=== PATIENT | male | born 1960 | race Caucasian/White ===

== ENCOUNTER 2018-12-12 10:30 | Inpatient (IN) | payer MEDICARE, OTHER ==
[2018-12-12 20:02] VITALS: BP 153/90
[2018-12-12] MEDS ORDERED: Magnesium Hydroxide (MOM) 30 mL UDC PO PRN (20:05)
[2018-12-12] MEDS ORDERED: Maalox 30 mL Cup PO PRN (20:05)
[2018-12-13] MEDS: Multivitamin Tab PO SCH (08:34)
--- NOTE | 2018-12-13 16:55 | History & Physical ---
ADMIT DATE: 12/13/2018 REASON FOR CONSULTATION: Medical management and clearance. CHIEF COMPLAINT: Admitted to inpatient unit. HISTORY OF PRESENT ILLNESS: This is a 58-year-old male with history of chronic low back pain, psych disorder, Alzheimer's dementia, and constipation, admitted from nursing facility. The patient was cleared medically from [facility]. The patient denies any fever, chills, and weight loss or chest pain. ____ complains of back pain. PAST MEDICAL HISTORY: As mentioned in history of present illness. PAST SURGICAL HISTORY: Denies surgeries in the past. ALLERGIES: HALDOL. MEDICATIONS: Tylenol, ____, ibuprofen, Namenda, Seroquel, and trazodone. FAMILY HISTORY: Noncontributory. SOCIAL HISTORY: Smokes about a pack per day, drinks whenever it is available. He used marijuana and cocaine. 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 REVIEW OF SYSTEMS: GENERAL: The patient denies any constitutional symptoms. HEENT: No blurred vision. LUNGS: No diagnosis of COPD or asthma. Chronic smoker. HEART: No hypertension or coronary artery disease. ABDOMEN: No nausea, vomiting, pain. GENITOURINARY: The patient denies increased dysuria. NEUROLOGIC: No headache, seizure or syncope. PSYCHIATRIC: Stable. PHYSICAL EXAMINATION: VITAL SIGNS: Blood pressure 132/83, respirations 20, pulse 64, temperature 97.1. EXTREMITIES: Well-developed, middle-aged male. NECK: Supple. No mass. LUNGS: Equal breath sounds, otherwise clear to auscultation. HEART: Regular rate and rhythm without appreciable murmur. ABDOMEN: Soft, nontender. Positive bowel sounds. Urogenital disorder. ____. SKIN: Warm to touch ____ with a skin tear or lacerations. EXTREMITIES: No clubbing, cyanosis or edema. NEUROLOGIC: Limited, moving 4 extremities. Motor and sensory were equal. LABORATORY DATA: CBC, Chem-20, lipid and head CT were all within normal range. ASSESSMENT AND PLAN: Low back pain, Alzheimer's dementia, psych disorder, constipation. We will refer the patient nonsteroidal anti-inflammatory drugs. We will refer the patient's medication treatment. We will continue on laxative. We will continue to monitor the patient closely with Dr. Machuca. JOB# [id number]
--- NOTE | 2018-12-13 20:11 | Psychiatric Evaluation ---
DATE OF SERVICE: 12/12/2018 IDENTIFYING DATA: The patient is a 58-year-old male, resident of [facility] in [place]. Information obtained by directly interviewing the patient as well as reviewing the admission papers. JUSTIFICATION FOR HOSPITALIZATION: The patient is admitted here on a voluntary basis in view of his acute agitation. CHIEF COMPLAINT: "I don't know why they have to bring me in here." HISTORY OF PRESENT ILLNESS: This is the first psychiatric hospitalization to [facility] for this male, who is reported to have been diagnosed to have schizophrenia, chronic paranoid type and is being followed up by Dr. Owens on an outpatient basis. The patient has been getting out of control, screaming, and yelling and has been testing the limits. The patient could not be contained at a lower level of care and hence the patient has been brought over here for stabilization. PAST PSYCHIATRIC HISTORY: Details are not known. MEDICAL HISTORY AND PHYSICAL EXAMINATION: Requested by Dr. Lubin and is noted to be significant for a chronic low back pain. CURRENT MEDICATIONS: Include the Seroquel, trazodone, Ativan, and fluphenazine. ALLERGIES: No allergies are noted. PHYSICAL OR SEXUAL ABUSE HISTORY: None. LEGAL PROBLEMS: None at this time. SUBSTANCE ABUSE HISTORY: None. MENTAL STATUS EXAMINATION: The patient is a 58-year-old, looking his stated age, superficially cooperative. Eye contact is fair. Mood is irritable. Affect is constricted. The patient's insight and judgment are noted to be still impaired. Impulse control is noted to be limited. The patient has been going on a tangent. 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 The patient is also stating that he is going to be having couple of buddies, to come and live with him and that he wants to take care of business. The patient at this time is non-realistic and has been going on a tangent. The patient is also displaying ____ memory deficits. The patient is feeling that his son lives next door and his mother is coming in to visit him tonight. The patient is not making much sense. The patient is currently on 800 mg of the Seroquel, 75 of the trazodone, which is going to be maintained to 50. The patient is going to be closely monitored. I encouraged to verbalize the concerns rather than to act out. ESTIMATED LENGTH OF STAY: 3-5 days. DISCHARGE CRITERIA: When he no longer is a threat to self or others and be able to cope up with the stress. JOB# [id number]
[2018-12-14] MEDS: Multivitamin Tab PO SCH (08:18)
--- NOTE | 2018-12-14 12:36 | Internal Medicine Prog Note ---
Internal Medicine Subjective - Subjective Patient seen and examined:: with staff, chart reviewed Patient is:: awake, verbal, interactive Per staff patient has:: no adverse event, no episodes of fall, agitated Internal Medicine Objective - Physical Exam Vitals and I&O: Vital Signs Temp 97.1 F 12/14/18 06:53 Pulse 78 12/14/18 06:53 Resp 20 12/14/18 06:53 BP 113/69 12/14/18 06:53 Pulse Ox 98 12/14/18 06:53 Intake & Output 12/13/18 12/14/18 12/14/18 18:59 06:59 18:59 Intake Total 1600 120 Balance 1600 120 Intake: Oral 1600 120 Other: # Voids 4 3 # Bowel Movements 1 Active Medications: Current Medications Acetaminophen (Tylenol) 650 mg PO Q4HR PRN PRN Reason: Mild Pain (Scale 1-3) Stop: 02/10/19 20:04 Last Admin: 12/13/18 04:09 Dose: 650 mg Acetaminophen (Tylenol) 650 mg PO Q4H PRN PRN Reason: TEMP ABOVE 100 Stop: 02/12/19 11:45 Al Hydrox/Mg Hydrox/Simethicone (Maalox) 30 ml PO Q4HR PRN PRN Reason: GI DISTRESS Stop: 02/10/19 20:04 Last Admin: 12/13/18 04:10 Dose: 30 ml Docusate Sodium (Colace) 100 mg PO DAILY [facility] Stop: 02/11/19 08:59 Last Admin: 12/14/18 08:18 Dose: 100 mg Fluphenazine HCl (Prolixin) 5 mg PO HS [facility]; Protocol Stop: 02/11/19 20:59 Last Admin: 12/13/18 21:26 Dose: 5 mg Ibuprofen (Motrin) 800 mg PO BID PRN PRN Reason: back pain Stop: 02/10/19 21:55 Last Admin: 12/13/18 11:41 Dose: 800 mg Lorazepam (Ativan) 0.5 mg PO Q4HR PRN; Protocol PRN Reason: Agitation Stop: 01/11/19 20:04 Last Admin: 12/14/18 08:33 Dose: 0.5 mg Magnesium Hydroxide (Milk Of Magnesia) 30 ml PO HS PRN PRN Reason: Constipation Memantine (Namenda) 5 mg PO BID [facility] Stop: 02/11/19 08:59 Last Admin: 12/14/18 08:18 Dose: 5 mg Multivitamins/Vitamin C (Theragran) 1 tab PO DAILY [facility] Stop: 02/11/19 08:59 Last Admin: 12/14/18 08:18 Dose: 1 tab Quetiapine Fumarate (Seroquel) 200 mg PO BID [facility]; Protocol Stop: 02/11/19 08:59 Last Admin: 12/14/18 08:18 Dose: 200 mg Quetiapine Fumarate (Seroquel) 400 mg PO HS [facility]; Protocol Stop: 02/11/19 20:59 Last Admin: 12/13/18 21:26 Dose: 400 mg Trazodone HCl (Desyrel) 50 mg PO HS [facility]; Protocol Stop: 02/11/19 20:59 Last Admin: 12/13/18 21:26 Dose: 50 mg Zolpidem Tartrate (Ambien) 5 mg PO HS PRN PRN Reason: Insomnia Stop: 02/10/19 20:04 Last Admin: 12/13/18 21:27 Dose: 5 mg General: demented HEENT: NC/AT, PERRLA, EOMI Neck: Supple, No JVD Lungs: CTAB Cardiovascular: RRR, Normal S1, Normal S2 Abdomen: soft, non-tender, thin, positive bowel sound Extremities: excoriation Neurological: no change Internal Medicine Assmt/Plan - Assessment Assessment: ASSESSMENT AND PLAN: Low back pain, Alzheimer's dementia, psych disorder, constipation. - Plan Plan: PLAN: We will refer the patient nonsteroidal anti-inflammatory drugs. We will refer the patient's medication treatment. We will continue on laxative. We will continue to monitor the patient closely with Dr. Machuca. labs noted
[2018-12-15] MEDS: Multivitamin Tab PO SCH (08:32)
--- NOTE | 2018-12-15 13:03 | Progress Notes ---
DATE: 12/14/2018 SUBJECTIVE: Staff was spoken to. The patient is interviewed. Mood was noted to be irritable. Affect is constricted. Insight and judgment are noted to be still impaired. Impulse control is noted to be limited. The patient has been testing the medications. The patient has been screaming and yelling at the staff and the patient has no insight into his illness. The patient needs to be redirected. Coping skills are noted to be extremely poor at this time. The patient has been demanding that he should be discharged. In view of the acute psychosis, it is decided to increase the dose on the Prolixin and Depakote to contain mood swings. ASSESSMENT: The patient is still out of control. PLAN: To continue the patient with the supportive therapy, encouraged the patient to verbalize the concerns rather than to act out. JOB# [id number]
--- NOTE | 2018-12-15 13:05 | Progress Notes ---
DATE: 12/15/2018 SUBJECTIVE: Staff was spoken to. The patient is interviewed. Mood is noted to be irritable. Affect is constricted. The patient has been going on a tangent. 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 The patient has no insight into his illness. The patient is going on a tangent. The patient's coping skills at this time are noted to be very poor. The patient is getting easily angry and upset at this time. ASSESSMENT: The patient is still grossly psychotic. PLAN: To continue the patient with the supportive therapy, encouraged the patient to verbalize the concerns rather than to act out. The patient is going to be continued on the Seroquel, Prolixin and Depakote and the patient is going to be closely monitored. Once stabilized, the patient is going to be discharged to [facility] to be followed up on an outpatient basis. JOB# [id number]
--- NOTE | 2018-12-15 15:01 | Internal Medicine Prog Note ---
Internal Medicine Subjective - Subjective Patient seen and examined:: with staff, chart reviewed Patient is:: awake, verbal, interactive Per staff patient has:: no adverse event, no episodes of fall, agitated Internal Medicine Objective - Physical Exam Vitals and I&O: Vital Signs Temp 97.2 F 12/15/18 14:00 Pulse 91 12/15/18 14:00 Resp 20 12/15/18 14:00 BP 117/60 12/15/18 14:00 Pulse Ox 96 12/15/18 14:00 Intake & Output 12/14/18 12/15/18 12/15/18 18:59 06:59 18:59 Intake Total 1080 120 Balance 1080 120 Intake: Oral 1080 120 Other: # Voids 3 2 # Bowel Movements 1 Active Medications: Current Medications Acetaminophen (Tylenol) 650 mg PO Q4HR PRN PRN Reason: Mild Pain (Scale 1-3) Stop: 02/10/19 20:04 Last Admin: 12/13/18 04:09 Dose: 650 mg Acetaminophen (Tylenol) 650 mg PO Q4H PRN PRN Reason: TEMP ABOVE 100 Stop: 02/12/19 11:45 Al Hydrox/Mg Hydrox/Simethicone (Maalox) 30 ml PO Q4HR PRN PRN Reason: GI DISTRESS Stop: 02/10/19 20:04 Last Admin: 12/13/18 04:10 Dose: 30 ml Divalproex Sodium (Depakote Dr) 250 mg PO BID [facility]; Protocol Stop: 02/13/19 08:59 Last Admin: 12/15/18 08:32 Dose: 250 mg Docusate Sodium (Colace) 100 mg PO DAILY [facility] Stop: 02/11/19 08:59 Last Admin: 12/15/18 08:32 Dose: 100 mg Fluphenazine HCl (Prolixin) 5 mg PO BID [facility]; Protocol Stop: 02/13/19 16:59 Ibuprofen (Motrin) 800 mg PO BID PRN PRN Reason: back pain Stop: 02/10/19 21:55 Last Admin: 12/14/18 13:31 Dose: 800 mg Lorazepam (Ativan) 0.5 mg PO Q4HR PRN; Protocol PRN Reason: Agitation Stop: 01/11/19 20:04 Last Admin: 12/14/18 08:33 Dose: 0.5 mg Magnesium Hydroxide (Milk Of Magnesia) 30 ml PO HS PRN PRN Reason: Constipation Memantine (Namenda) 5 mg PO BID [facility] Stop: 02/11/19 08:59 Last Admin: 12/15/18 08:32 Dose: 5 mg Multivitamins/Vitamin C (Theragran) 1 tab PO DAILY [facility] Stop: 02/11/19 08:59 Last Admin: 12/15/18 08:32 Dose: 1 tab Quetiapine Fumarate (Seroquel) 200 mg PO BID [facility]; Protocol Stop: 02/11/19 08:59 Last Admin: 12/15/18 08:32 Dose: 200 mg Quetiapine Fumarate (Seroquel) 400 mg PO HS [facility]; Protocol Stop: 02/11/19 20:59 Last Admin: 12/14/18 20:28 Dose: 400 mg Trazodone HCl (Desyrel) 50 mg PO HS [facility]; Protocol Stop: 02/11/19 20:59 Last Admin: 12/14/18 20:30 Dose: 50 mg Zolpidem Tartrate (Ambien) 5 mg PO HS PRN PRN Reason: Insomnia Stop: 02/10/19 20:04 Last Admin: 12/13/18 21:27 Dose: 5 mg General: demented HEENT: NC/AT, PERRLA, EOMI Neck: Supple, No JVD Lungs: CTAB Cardiovascular: RRR, Normal S1, Normal S2 Abdomen: soft, non-tender, thin, positive bowel sound Extremities: excoriation Neurological: no change Internal Medicine Assmt/Plan - Assessment Assessment: ASSESSMENT AND PLAN: Low back pain, Alzheimer's dementia, psych disorder, constipation. - Plan Plan: PLAN: We will refer the patient nonsteroidal anti-inflammatory drugs. We will refer the patient's medication treatment. We will continue on laxative. We will continue to monitor the patient closely with Dr. Machuca. labs noted
[2018-12-16] MEDS: Multivitamin Tab PO SCH (08:27)
--- NOTE | 2018-12-16 12:46 | Internal Medicine Prog Note ---
Internal Medicine Subjective - Subjective Patient seen and examined:: with staff, chart reviewed Patient is:: awake, verbal, interactive Per staff patient has:: no adverse event, no episodes of fall, agitated Internal Medicine Objective - Physical Exam Vitals and I&O: Vital Signs Temp 96.5 F 12/15/18 20:00 Pulse 81 12/15/18 20:00 Resp 16 12/16/18 08:00 BP 106/69 12/15/18 20:00 Pulse Ox 99 12/15/18 20:00 Intake & Output 12/15/18 12/16/18 12/16/18 18:59 06:59 18:59 Intake Total 1200 Balance 1200 Intake: Oral 1200 Other: # Bowel Movements 1 Active Medications: Current Medications Acetaminophen (Tylenol) 650 mg PO Q4HR PRN PRN Reason: Mild Pain (Scale 1-3) Stop: 02/10/19 20:04 Last Admin: 12/13/18 04:09 Dose: 650 mg Acetaminophen (Tylenol) 650 mg PO Q4H PRN PRN Reason: TEMP ABOVE 100 Stop: 02/12/19 11:45 Al Hydrox/Mg Hydrox/Simethicone (Maalox) 30 ml PO Q4HR PRN PRN Reason: GI DISTRESS Stop: 02/10/19 20:04 Last Admin: 12/13/18 04:10 Dose: 30 ml Divalproex Sodium (Depakote Dr) 250 mg PO BID [facility]; Protocol Stop: 02/13/19 08:59 Last Admin: 12/16/18 08:26 Dose: 250 mg Docusate Sodium (Colace) 100 mg PO DAILY [facility] Stop: 02/11/19 08:59 Last Admin: 12/16/18 08:26 Dose: 100 mg Fluphenazine HCl (Prolixin) 5 mg PO BID [facility]; Protocol Stop: 02/13/19 16:59 Last Admin: 12/16/18 08:25 Dose: 5 mg Ibuprofen (Motrin) 800 mg PO BID PRN PRN Reason: back pain Stop: 02/10/19 21:55 Last Admin: 12/15/18 21:18 Dose: 800 mg Lorazepam (Ativan) 0.5 mg PO Q4HR PRN; Protocol PRN Reason: Agitation Stop: 01/11/19 20:04 Last Admin: 10/17/19 22:38 Dose: 0.5 mg Magnesium Hydroxide (Milk Of Magnesia) 30 ml PO HS PRN PRN Reason: Constipation Memantine (Namenda) 5 mg PO BID [facility] Stop: 02/11/19 08:59 Last Admin: 12/16/18 08:26 Dose: 5 mg Multivitamins/Vitamin C (Theragran) 1 tab PO DAILY [facility] Stop: 02/11/19 08:59 Last Admin: 12/16/18 08:27 Dose: 1 tab Quetiapine Fumarate (Seroquel) 200 mg PO BID [facility]; Protocol Stop: 02/11/19 08:59 Last Admin: 12/16/18 08:26 Dose: 200 mg Quetiapine Fumarate (Seroquel) 400 mg PO HS [facility]; Protocol Stop: 02/11/19 20:59 Last Admin: 12/15/18 20:17 Dose: 400 mg Trazodone HCl (Desyrel) 50 mg PO HS [facility]; Protocol Stop: 02/11/19 20:59 Last Admin: 12/15/18 20:17 Dose: 50 mg Zolpidem Tartrate (Ambien) 5 mg PO HS PRN PRN Reason: Insomnia Stop: 02/10/19 20:04 Last Admin: 12/13/18 21:27 Dose: 5 mg General: demented HEENT: NC/AT, PERRLA, EOMI Neck: Supple, No JVD Lungs: CTAB Cardiovascular: RRR, Normal S1, Normal S2 Abdomen: soft, non-tender, thin, positive bowel sound Extremities: excoriation Neurological: no change Internal Medicine Assmt/Plan - Assessment Assessment: ASSESSMENT AND PLAN: Low back pain, Alzheimer's dementia, psych disorder, constipation. - Plan Plan: PLAN: We will refer the patient nonsteroidal anti-inflammatory drugs. We will refer the patient's medication treatment. We will continue on laxative. We will continue to monitor the patient closely with Dr. Machuca. labs noted
--- NOTE | 2018-12-17 04:24 | Progress Notes ---
DATE: 12/16/2018 PSYCHIATRIC PROGRESS NOTE SUBJECTIVE: Staff was spoken to. The patient is interviewed. Mood is noted to be irritable. Affect is constricted. Insight and judgment at this time is still impaired. Impulse control is noted to be limited. The patient is still testing the limits. The patient is talking nonsensically, stating that his parents are going to be here and he is going to be leaving very soon. The patient has no insight into his illness. Short and long-term memory are noted to be impaired. The patient is currently on memantine that is Namenda 5 mg twice a day, which is going to be increased to 10 mg and the patient is going to be closely monitored with this one and the patient is going to be continued on the Depakote and Seroquel and Prolixin. ASSESSMENT: The patient is still psychotic and impulsive. PLAN: To continue the patient with the current medications and discontinue the trazodone since the patient is already on 400 mg of the Seroquel at bedtime. The patient is going to be closely monitored and followed up with the supportive therapy. JOB# [id number]
[2018-12-17] MEDS: Multivitamin Tab PO SCH (08:47)
--- NOTE | 2018-12-17 10:20 | Internal Medicine Prog Note ---
Internal Medicine Subjective - Subjective Patient seen and examined:: with staff, chart reviewed Patient is:: awake, verbal, interactive Per staff patient has:: no adverse event, no episodes of fall, agitated Internal Medicine Objective - Physical Exam Vitals and I&O: Vital Signs Temp 97.8 F 12/17/18 05:18 Pulse 62 12/17/18 05:18 Resp 20 12/17/18 05:18 BP 128/72 12/17/18 05:18 Pulse Ox 97 12/17/18 05:18 Intake & Output 12/16/18 12/17/18 12/17/18 18:59 06:59 18:59 Intake Total 1200 240 Balance 1200 240 Intake: Oral 1200 240 Other: # Voids 2 # Bowel Movements 1 0 Active Medications: Current Medications Acetaminophen (Tylenol) 650 mg PO Q4HR PRN PRN Reason: Mild Pain (Scale 1-3) Stop: 02/10/19 20:04 Last Admin: 12/13/18 04:09 Dose: 650 mg Acetaminophen (Tylenol) 650 mg PO Q4H PRN PRN Reason: TEMP ABOVE 100 Stop: 02/12/19 11:45 Al Hydrox/Mg Hydrox/Simethicone (Maalox) 30 ml PO Q4HR PRN PRN Reason: GI DISTRESS Stop: 02/10/19 20:04 Last Admin: 12/13/18 04:10 Dose: 30 ml Divalproex Sodium (Depakote Dr) 250 mg PO BID [facility]; Protocol Stop: 02/13/19 08:59 Last Admin: 12/17/18 08:47 Dose: 250 mg Docusate Sodium (Colace) 100 mg PO DAILY [facility] Stop: 02/11/19 08:59 Last Admin: 12/17/18 08:48 Dose: 100 mg Fluphenazine HCl (Prolixin) 5 mg PO BID [facility]; Protocol Stop: 02/13/19 16:59 Last Admin: 12/17/18 08:48 Dose: 5 mg Ibuprofen (Motrin) 800 mg PO BID PRN PRN Reason: back pain Stop: 02/10/19 21:55 Last Admin: 12/17/18 06:04 Dose: 800 mg Lorazepam (Ativan) 0.5 mg PO Q4HR PRN; Protocol PRN Reason: Agitation Stop: 01/11/19 20:04 Last Admin: 12/15/18 22:38 Dose: 0.5 mg Magnesium Hydroxide (Milk Of Magnesia) 30 ml PO HS PRN PRN Reason: Constipation Memantine (Namenda) 10 mg PO BID [facility] Stop: 02/15/19 08:59 Last Admin: 12/17/18 08:47 Dose: 10 mg Multivitamins/Vitamin C (Theragran) 1 tab PO DAILY [facility] Stop: 02/11/19 08:59 Last Admin: 12/17/18 08:47 Dose: 1 tab Quetiapine Fumarate (Seroquel) 200 mg PO BID [facility]; Protocol Stop: 02/11/19 08:59 Last Admin: 12/17/18 08:47 Dose: 200 mg Quetiapine Fumarate (Seroquel) 400 mg PO HS [facility]; Protocol Stop: 02/11/19 20:59 Last Admin: 12/16/18 20:35 Dose: 400 mg Zolpidem Tartrate (Ambien) 5 mg PO HS PRN PRN Reason: Insomnia Stop: 02/10/19 20:04 Last Admin: 12/16/18 20:36 Dose: 5 mg General: demented HEENT: NC/AT, PERRLA, EOMI Neck: Supple, No JVD Lungs: CTAB Cardiovascular: RRR, Normal S1, Normal S2 Abdomen: soft, non-tender, thin, positive bowel sound Extremities: excoriation Neurological: no change Internal Medicine Assmt/Plan - Assessment Assessment: ASSESSMENT AND PLAN: Low back pain, Alzheimer's dementia, psych disorder, constipation. - Plan Plan: PLAN: We will refer the patient nonsteroidal anti-inflammatory drugs. We will refer the patient's medication treatment. We will continue on laxative. We will continue to monitor the patient closely with Dr. Machuca. labs noted
--- NOTE | 2018-12-17 23:20 | Progress Notes ---
DATE: 12/17/2018 PSYCHIATRIC PROGRESS NOTE SUBJECTIVE: Staff was spoken to. The patient is interviewed. Mood is noted to be irritable. Affect is constricted. The patient continues to be tangential and has not been making any sense. The patient is stating that he was expecting his mother and father last night, they did not show up. The patient has been having short-term memory deficits, but long-term memory seems to be fair. The patient is grossly psychotic at this time. ASSESSMENT: The patient is still psychotic and impulsive. PLAN: To continue the patient with the current medications and followup. JOB# [id number]
[2018-12-18] MEDS: Multivitamin Tab PO SCH (09:26)
--- NOTE | 2018-12-18 15:10 | Internal Medicine Prog Note ---
Internal Medicine Subjective - Subjective Patient seen and examined:: with staff, chart reviewed Patient is:: awake, verbal, interactive Per staff patient has:: no adverse event, no episodes of fall, agitated Internal Medicine Objective - Physical Exam Vitals and I&O: Vital Signs Temp 98.7 F 12/18/18 14:00 Pulse 90 12/18/18 14:00 Resp 19 12/18/18 14:00 BP 131/91 12/18/18 14:00 Pulse Ox 98 12/18/18 14:00 Intake & Output 12/17/18 12/18/18 12/18/18 18:59 06:59 18:59 Intake Total 1600 120 Balance 1600 120 Intake: Oral 1600 120 Other: # Voids 4 1 # Bowel Movements 0 0 Active Medications: Current Medications Acetaminophen (Tylenol) 650 mg PO Q4HR PRN PRN Reason: Mild Pain (Scale 1-3) Stop: 02/10/19 20:04 Last Admin: 12/13/18 04:09 Dose: 650 mg Acetaminophen (Tylenol) 650 mg PO Q4H PRN PRN Reason: TEMP ABOVE 100 Stop: 02/12/19 11:45 Al Hydrox/Mg Hydrox/Simethicone (Maalox) 30 ml PO Q4HR PRN PRN Reason: GI DISTRESS Stop: 02/10/19 20:04 Last Admin: 12/13/18 04:10 Dose: 30 ml Divalproex Sodium (Depakote Dr) 250 mg PO BID [facility]; Protocol Stop: 02/13/19 08:59 Last Admin: 12/18/18 09:26 Dose: 250 mg Docusate Sodium (Colace) 100 mg PO DAILY [facility]I Stop: 02/11/19 08:59 Last Admin: 12/18/18 09:26 Dose: 100 mg Fluphenazine HCl (Prolixin) 5 mg PO BID [facility]; Protocol Stop: 02/13/19 16:59 Last Admin: 12/18/18 09:25 Dose: 5 mg Ibuprofen (Motrin) 800 mg PO BID PRN PRN Reason: back pain Stop: 02/10/19 21:55 Last Admin: 12/17/18 06:04 Dose: 800 mg Lorazepam (Ativan) 0.5 mg PO Q4HR PRN; Protocol PRN Reason: Agitation Stop: 01/11/19 20:04 Last Admin: 12/18/18 09:26 Dose: 0.5 mg Magnesium Hydroxide (Milk Of Magnesia) 30 ml PO HS PRN PRN Reason: Constipation Memantine (Namenda) 10 mg PO BID [facility] Stop: 02/15/19 08:59 Last Admin: 12/18/18 09:26 Dose: 10 mg Multivitamins/Vitamin C (Theragran) 1 tab PO DAILY [facility] Stop: 02/11/19 08:59 Last Admin: 12/18/18 09:26 Dose: 1 tab Quetiapine Fumarate (Seroquel) 200 mg PO BID [facility]; Protocol Stop: 02/11/19 08:59 Last Admin: 12/18/18 09:26 Dose: 200 mg Quetiapine Fumarate (Seroquel) 400 mg PO HS [facility]; Protocol Stop: 02/11/19 20:59 Last Admin: 12/17/18 21:18 Dose: 400 mg Zolpidem Tartrate (Ambien) 5 mg PO HS PRN PRN Reason: Insomnia Stop: 02/10/19 20:04 Last Admin: 12/17/18 21:18 Dose: 5 mg General: demented HEENT: NC/AT, PERRLA, EOMI Neck: Supple, No JVD Lungs: CTAB Cardiovascular: RRR, Normal S1, Normal S2 Abdomen: soft, non-tender, thin, positive bowel sound Extremities: excoriation Neurological: no change Internal Medicine Assmt/Plan - Assessment Assessment: ASSESSMENT AND PLAN: Low back pain, Alzheimer's dementia, psych disorder, constipation. - Plan Plan: PLAN: We will refer the patient nonsteroidal anti-inflammatory drugs. We will refer the patient's medication treatment. We will continue on laxative. We will continue to monitor the patient closely with Dr. Machuca. labs noted Nutritional Asmnt/Malnutr-PDOC - Dietary Evaluation Malnutrition Findings (Please click <Entered> for more info): Nutritional Asmnt/Malnutrition Start: 12/17/18 11: 18 Text: Status: Complete Freq: Protocol: Document 12/17/18 11:21 MMELENA (Rec: 12/17/18 11:46 MMELENA RODRIGEZ- FNS1) Nutritional Asmnt/Malnutrition Patient General Information Nutritional Screening Low Risk Diagnosis Psychosis Pertinent Medical Hx/Surgical Hx chronic low back pain, psych disorder, Alzheimer's dementia , constipation. Subjective Information Patient was admitted from [facility] due to aggressive behavior, agitation and wandering around the facility. Per nursing notes, patient easily agitated and irritable. Patient was seen wanding the halls at time of visit. Per nursing, tolerating diet without difficulty. Current Diet Order/ Nutrition Support Regular Patient / S.O Not Indicated Pertinent Medications maalox, colace, MOM, Theragran Pertinent Labs (12/12) WNL, A1C 5.8 Nutritional Hx/Data Height 1.65 m Height (Calculated Centimeters) 165.1 Current Weight (lbs) 79.379 kg Weight (Calculated Kilograms) 79.4 Weight (Calculated Grams) 48429.7 [place] Body Weight 136 % [place] Body Weight 128 Body Mass Index (BMI) 29.1 Recent Weight Change No Weight Status Overweight GI Symptoms GI Symptoms None Last BM 12/16 x 1 Difficult in: None Cultural/Ethnic/Anabaptist Belief none indicated Usual diet at home unknown Skin Integrity/Comment: Juan 21, intact Current %PO Good (75-100%) Estimated Nutritional Goals BEE in Kcals: Adj wt of IBW Calories/Kcals/Kg 66kg ADj bw 25-30kcal/kg Kcals Calculated ~2030-3404 kcal/day Protein: Adj wt of IBW Protein g/k-1.2 gm/kg Protein Calculated ~65-80 gm/day Fluid: ml ~1671-4123 ml/day (1 ml/kcal) Nutritional Problem No current Nutrition Prob Problem No nutrition diagnosis at this time Intervention/Recommendation Comments 1. Continue regular diet as tolerated by patient. Expected Outcomes/Goals Expected Outcomes/Goals oral intake >75% of meals, weight stable or trend toward IBW, nutrition related labs WNL F/U LR 12/24-
--- NOTE | 2018-12-19 03:03 | Progress Notes ---
DATE: 12/18/2018 PSYCHIATRIC PROGRESS NOTE SUBJECTIVE: Staff was spoken to. The patient is interviewed. Mood is noted to be irritable. Affect is constricted. The patient is pacing most of the time on the unit. Insight and judgment at this time are noted to be still impaired. Impulse control is noted to be limited. The patient is currently on a decent dose of medications are Seroquel 800 mg per day and Prolixin 5 mg twice a day. Even with these medications, the patient has been having difficult time to cope with the stress. Sleep is noted to be poor. Appetite is noted to be fair. ASSESSMENT: The patient is still psychotic. PLAN: To continue the patient with the supportive therapy and followup. [facility]# [id number]
[2018-12-19] MEDS: Multivitamin Tab PO SCH (08:00)
--- NOTE | 2018-12-19 12:44 | Internal Medicine Prog Note ---
Internal Medicine Subjective - Subjective Patient seen and examined:: with staff, chart reviewed Patient is:: awake, verbal, interactive Per staff patient has:: no adverse event, no episodes of fall, agitated Internal Medicine Objective - Physical Exam Vitals and I&O: Vital Signs Temp 97 F 12/18/18 20:00 Pulse 78 12/18/18 20:00 Resp 19 12/19/18 08:00 BP 125/88 12/18/18 20:00 Pulse Ox 98 12/18/18 20:00 Intake & Output 12/18/18 12/19/18 12/19/18 18:59 06:59 18:59 Intake Total 1200 120 Balance 1200 120 Intake: Oral 1200 120 Other: # Voids 3 Active Medications: Current Medications Acetaminophen (Tylenol) 650 mg PO Q4HR PRN PRN Reason: Mild Pain (Scale 1-3) Stop: 02/10/19 20:04 Last Admin: 12/13/18 04:09 Dose: 650 mg Acetaminophen (Tylenol) 650 mg PO Q4H PRN PRN Reason: TEMP ABOVE 100 Stop: 02/12/19 11:45 Al Hydrox/Mg Hydrox/Simethicone (Maalox) 30 ml PO Q4HR PRN PRN Reason: GI DISTRESS Stop: 02/10/19 20:04 Last Admin: 12/13/18 04:10 Dose: 30 ml Divalproex Sodium (Depakote Dr) 250 mg PO BID [facility]; Protocol Stop: 02/13/19 08:59 Last Admin: 12/19/18 08:00 Dose: 250 mg Docusate Sodium (Colace) 100 mg PO DAILY [facility] Stop: 02/11/19 08:59 Last Admin: 12/19/18 08:00 Dose: 100 mg Fluphenazine HCl (Prolixin) 5 mg PO BID [facility]; Protocol Stop: 02/13/19 16:59 Last Admin: 12/19/18 08:00 Dose: 5 mg Ibuprofen (Motrin) 800 mg PO BID PRN PRN Reason: back pain Stop: 02/10/19 21:55 Last Admin: 12/18/18 15:58 Dose: 800 mg Lorazepam (Ativan) 0.5 mg PO Q4HR PRN; Protocol PRN Reason: Agitation Stop: 01/11/19 20:04 Last Admin: 12/19/18 06:13 Dose: 0.5 mg Magnesium Hydroxide (Milk Of Magnesia) 30 ml PO HS PRN PRN Reason: Constipation Memantine (Namenda) 10 mg PO BID [facility] Stop: 02/15/19 16:59 Multivitamins/Vitamin C (Theragran) 1 tab PO DAILY [facility] Stop: 02/11/19 08:59 Last Admin: 12/19/18 08:00 Dose: 1 tab Quetiapine Fumarate (Seroquel) 200 mg PO BID [facility]; Protocol Stop: 02/11/19 08:59 Last Admin: 12/19/18 08:00 Dose: 200 mg Quetiapine Fumarate (Seroquel) 400 mg PO HS [facility]; Protocol Stop: 02/11/19 20:59 Last Admin: 12/18/18 21:36 Dose: 400 mg Zolpidem Tartrate (Ambien) 5 mg PO HS PRN PRN Reason: Insomnia Stop: 02/10/19 20:04 Last Admin: 12/18/18 21:36 Dose: 5 mg General: demented HEENT: NC/AT, PERRLA, EOMI Neck: Supple, No JVD Lungs: CTAB Cardiovascular: RRR, Normal S1, Normal S2 Abdomen: soft, non-tender, thin, positive bowel sound Extremities: excoriation Neurological: no change Internal Medicine Assmt/Plan - Assessment Assessment: ASSESSMENT AND PLAN: Low back pain, Alzheimer's dementia, psych disorder, constipation. - Plan Plan: PLAN: We will refer the patient nonsteroidal anti-inflammatory drugs. We will refer the patient's medication treatment. We will continue on laxative. We will continue to monitor the patient closely with Dr. Machuca. labs noted Nutritional Asmnt/Malnutr-PDOC - Dietary Evaluation Malnutrition Findings (Please click <Entered> for more info): Nutritional Asmnt/Malnutrition Start: 12/17/18 11: 18 Text: Status: Complete Freq: Protocol: Document 12/17/18 11:21 MARYANN (Rec: 12/17/18 11:46 MARYANN RODRIGEZ- FNS1) Nutritional Asmnt/Malnutrition Patient General Information Nutritional Screening Low Risk Diagnosis Psychosis Pertinent Medical Hx/Surgical Hx chronic low back pain, psych disorder, Alzheimer's dementia , constipation. Subjective Information Patient was admitted from [facility] due to aggressive behavior, agitation and wandering around the facility. Per nursing notes, patient easily agitated and irritable. Patient was seen wanding the halls at time of visit. Per nursing, tolerating diet without difficulty. Current Diet Order/ Nutrition Support Regular Patient / S.O Not Indicated Pertinent Medications maalox, colace, MOM, Theragran Pertinent Labs (12/12) WNL, A1C 5.8 Nutritional Hx/Data Height 1.65 m Height (Calculated Centimeters) 165.1 Current Weight (lbs) 79.379 kg Weight (Calculated Kilograms) 79.4 Weight (Calculated Grams) 36480.7 [place] Body Weight 136 % [place] Body Weight 128 Body Mass Index (BMI) 29.1 Recent Weight Change No Weight Status Overweight GI Symptoms GI Symptoms None Last BM 12/16 x 1 Difficult in: None Cultural/Ethnic/Congregational Belief none indicated Usual diet at home unknown Skin Integrity/Comment: Juan 21, intact Current %PO Good (75-100%) Estimated Nutritional Goals BEE in Kcals: Adj wt of IBW Calories/Kcals/Kg 66kg ADj bw 25-30kcal/kg Kcals Calculated ~6970-3603 kcal/day Protein: Adj wt of IBW Protein g/k-1.2 gm/kg Protein Calculated ~65-80 gm/day Fluid: ml ~8054-3756 ml/day (1 ml/kcal) Nutritional Problem No current Nutrition Prob Problem No nutrition diagnosis at this time Intervention/Recommendation Comments 1. Continue regular diet as tolerated by patient. Expected Outcomes/Goals Expected Outcomes/Goals oral intake >75% of meals, weight stable or trend toward IBW, nutrition related labs WNL F/U LR
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
[2018-12-20] MEDS: Multivitamin Tab PO SCH (09:26)
--- NOTE | 2018-12-20 12:36 | Internal Medicine Prog Note ---
Internal Medicine Subjective - Subjective Patient seen and examined:: with staff, chart reviewed Patient is:: awake, verbal, interactive Per staff patient has:: no adverse event, no episodes of fall, agitated Internal Medicine Objective - Physical Exam Vitals and I&O: Vital Signs Temp 97.5 F 12/20/18 06:07 Pulse 78 12/20/18 06:07 Resp 18 12/20/18 08:00 BP 135/79 12/20/18 06:07 Pulse Ox 99 12/20/18 06:07 Intake & Output 12/19/18 12/20/18 12/20/18 18:59 06:59 18:59 Intake Total 1450 Balance 1450 Intake: Oral 1450 Other: # Voids 2 # Bowel Movements 0 Active Medications: Current Medications Acetaminophen (Tylenol) 650 mg PO Q4HR PRN PRN Reason: Mild Pain (Scale 1-3) Stop: 02/10/19 20:04 Last Admin: 12/13/18 04:09 Dose: 650 mg Acetaminophen (Tylenol) 650 mg PO Q4H PRN PRN Reason: TEMP ABOVE 100 Stop: 02/12/19 11:45 Al Hydrox/Mg Hydrox/Simethicone (Maalox) 30 ml PO Q4HR PRN PRN Reason: GI DISTRESS Stop: 02/10/19 20:04 Last Admin: 12/13/18 04:10 Dose: 30 ml Divalproex Sodium (Depakote Dr) 500 mg PO BID [facility]; Protocol Stop: 02/18/19 08:59 Docusate Sodium (Colace) 100 mg PO DAILY [facility] Stop: 02/11/19 08:59 Last Admin: 12/20/18 09:27 Dose: Not Given Fluphenazine HCl (Prolixin) 5 mg PO BID [facility]; Protocol Stop: 02/13/19 16:59 Last Admin: 12/20/18 09:27 Dose: 5 mg Ibuprofen (Motrin) 800 mg PO BID PRN PRN Reason: back pain Stop: 02/10/19 21:55 Last Admin: 12/20/18 04:09 Dose: 800 mg Lorazepam (Ativan) 0.5 mg PO Q4HR PRN; Protocol PRN Reason: Agitation Stop: 01/11/19 20:04 Last Admin: 12/19/18 18:23 Dose: 0.5 mg Magnesium Hydroxide (Milk Of Magnesia) 30 ml PO HS PRN PRN Reason: Constipation Memantine (Namenda) 10 mg PO BID [facility] Stop: 02/15/19 16:59 Last Admin: 12/20/18 09:27 Dose: 10 mg Multivitamins/Vitamin C (Theragran) 1 tab PO DAILY [facility] Stop: 02/11/19 08:59 Last Admin: 12/20/18 09:26 Dose: 1 tab Quetiapine Fumarate (Seroquel) 200 mg PO BID [facility]; Protocol Stop: 02/11/19 08:59 Last Admin: 12/20/18 09:27 Dose: 200 mg Quetiapine Fumarate (Seroquel) 400 mg PO HS [facility]; Protocol Stop: 02/11/19 20:59 Last Admin: 12/19/18 20:36 Dose: 400 mg Zolpidem Tartrate (Ambien) 5 mg PO HS PRN PRN Reason: Insomnia Stop: 02/10/19 20:04 Last Admin: 12/19/18 20:36 Dose: 5 mg General: demented HEENT: NC/AT, PERRLA, EOMI Neck: Supple, No JVD Lungs: CTAB Cardiovascular: RRR, Normal S1, Normal S2 Abdomen: soft, non-tender, thin, positive bowel sound Extremities: excoriation Neurological: no change Internal Medicine Assmt/Plan - Assessment Assessment: ASSESSMENT AND PLAN: Low back pain, Alzheimer's dementia, psych disorder, constipation. - Plan Plan: PLAN: We will refer the patient nonsteroidal anti-inflammatory drugs. We will refer the patient's medication treatment. We will continue on laxative. We will continue to monitor the patient closely with Dr. Machuca. labs noted Nutritional Asmnt/Malnutr-PDOC - Dietary Evaluation Malnutrition Findings (Please click <Entered> for more info): Nutritional Asmnt/Malnutrition Start: 12/17/18 11: 18 Text: Status: Complete Freq: Protocol: Document 12/17/18 11:21 MARYANN (Rec: 12/17/18 11:46 MARYANN RODRIGEZ- FNS1) Nutritional Asmnt/Malnutrition Patient General Information Nutritional Screening Low Risk Diagnosis Psychosis Pertinent Medical Hx/Surgical Hx chronic low back pain, psych disorder, Alzheimer's dementia , constipation. Subjective Information Patient was admitted from [facility] due to aggressive behavior, agitation and wandering around the facility. Per nursing notes, patient easily agitated and irritable. Patient was seen wanding the halls at time of visit. Per nursing, tolerating diet without difficulty. Current Diet Order/ Nutrition Support Regular Patient / S.O Not Indicated Pertinent Medications maalox, colace, MOM, Theragran Pertinent Labs (12/12) WNL, A1C 5.8 Nutritional Hx/Data Height 1.65 m Height (Calculated Centimeters) 165.1 Current Weight (lbs) 79.379 kg Weight (Calculated Kilograms) 79.4 Weight (Calculated Grams) 80672.7 [place] Body Weight 136 % [place] Body Weight 128 Body Mass Index (BMI) 29.1 Recent Weight Change No Weight Status Overweight GI Symptoms GI Symptoms None Last BM 12/16 x 1 Difficult in: None Cultural/Ethnic/Tenriism Belief none indicated Usual diet at home unknown Skin Integrity/Comment: Juan 21, intact Current %PO Good (75-100%) Estimated Nutritional Goals BEE in Kcals: Adj wt of IBW Calories/Kcals/Kg 66kg ADj bw 25-30kcal/kg Kcals Calculated ~2519-5088 kcal/day Protein: Adj wt of IBW Protein g/k-1.2 gm/kg Protein Calculated ~65-80 gm/day Fluid: ml ~3974-6653 ml/day (1 ml/kcal) Nutritional Problem No current Nutrition Prob Problem No nutrition diagnosis at this time Intervention/Recommendation Comments 1. Continue regular diet as tolerated by patient. Expected Outcomes/Goals Expected Outcomes/Goals oral intake >75% of meals, weight stable or trend toward IBW, nutrition related labs WNL F/U LR 12/24-
--- NOTE | 2018-12-20 22:00 | Progress Notes ---
DATE: 12/20/2018 PSYCHIATRIC PROGRESS NOTE SUBJECTIVE: Staff was spoken to. The patient is interviewed. Mood is noted to be irritable. Affect is constricted. The patient has been testing the limits. The patient has no insight into his illness. 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 The patient has been verbally abusive towards the staff members. The patient has no insight into his illness. ASSESSMENT: The patient is still grossly psychotic and impulsive. PLAN: To continue the patient with the current medications. I encouraged the patient to verbalize the concerns rather than to act out. JOB# [id number]
[2018-12-21] MEDS: Multivitamin Tab PO SCH (08:14)
--- NOTE | 2018-12-21 12:32 | Internal Medicine Prog Note ---
Internal Medicine Subjective - Subjective Patient seen and examined:: with staff, chart reviewed Patient is:: awake, verbal, interactive Per staff patient has:: no adverse event, no episodes of fall, agitated Internal Medicine Objective - Physical Exam Vitals and I&O: Vital Signs Temp 97.8 F 12/21/18 06:39 Pulse 82 12/21/18 06:39 Resp 20 12/21/18 06:39 BP 139/76 12/21/18 06:39 Pulse Ox 98 12/21/18 06:39 Intake & Output 12/20/18 12/21/18 12/21/18 18:59 06:59 18:59 Intake Total 1000 120 Balance 1000 120 Intake: Oral 120 Other 1000 Other: # Voids 4 3 # Bowel Movements 1 0 Active Medications: Current Medications Acetaminophen (Tylenol) 650 mg PO Q4HR PRN PRN Reason: Mild Pain (Scale 1-3) Stop: 02/10/19 20:04 Last Admin: 12/13/18 04:09 Dose: 650 mg Acetaminophen (Tylenol) 650 mg PO Q4H PRN PRN Reason: TEMP ABOVE 100 Stop: 02/12/19 11:45 Al Hydrox/Mg Hydrox/Simethicone (Maalox) 30 ml PO Q4HR PRN PRN Reason: GI DISTRESS Stop: 02/10/19 20:04 Last Admin: 12/13/18 04:10 Dose: 30 ml Divalproex Sodium (Depakote Dr) 500 mg PO BID [facility]; Protocol Stop: 02/18/19 08:59 Last Admin: 12/21/18 08:14 Dose: 500 mg Docusate Sodium (Colace) 100 mg PO DAILY [facility] Stop: 02/11/19 08:59 Last Admin: 12/21/18 08:14 Dose: 100 mg Fluphenazine HCl (Prolixin) 5 mg PO BID [facility]; Protocol Stop: 02/13/19 16:59 Last Admin: 12/21/18 08:14 Dose: 5 mg Fluphenazine HCl (Prolixin) 5 mg PO BID [facility]; Protocol Stop: 02/13/19 16:59 Ibuprofen (Motrin) 800 mg PO BID PRN PRN Reason: back pain Stop: 02/10/19 21:55 Last Admin: 12/20/18 04:09 Dose: 800 mg Lorazepam (Ativan) 0.5 mg PO Q4HR PRN; Protocol PRN Reason: Agitation Stop: 01/11/19 20:04 Last Admin: 12/21/18 08:14 Dose: 0.5 mg Magnesium Hydroxide (Milk Of Magnesia) 30 ml PO HS PRN PRN Reason: Constipation Memantine (Namenda) 10 mg PO BID [facility] Stop: 02/15/19 16:59 Last Admin: 12/21/18 08:14 Dose: 10 mg Multivitamins/Vitamin C (Theragran) 1 tab PO DAILY [facility] Stop: 02/11/19 08:59 Last Admin: 12/21/18 08:14 Dose: 1 tab Quetiapine Fumarate (Seroquel) 200 mg PO BID [facility]; Protocol Stop: 02/11/19 08:59 Last Admin: 12/21/18 08:14 Dose: 200 mg Quetiapine Fumarate (Seroquel) 400 mg PO HS [facility]; Protocol Stop: 02/11/19 20:59 Last Admin: 12/20/18 20:51 Dose: 400 mg Zolpidem Tartrate (Ambien) 5 mg PO HS PRN PRN Reason: Insomnia Stop: 02/10/19 20:04 Last Admin: 12/20/18 20:51 Dose: 5 mg General: demented HEENT: NC/AT, PERRLA, EOMI Neck: Supple, No JVD Lungs: CTAB Cardiovascular: RRR, Normal S1, Normal S2 Abdomen: soft, non-tender, thin, positive bowel sound Extremities: excoriation Neurological: no change Internal Medicine Assmt/Plan - Assessment Assessment: ASSESSMENT AND PLAN: Low back pain, Alzheimer's dementia, psych disorder, constipation. - Plan Plan: PLAN: We will refer the patient nonsteroidal anti-inflammatory drugs. We will refer the patient's medication treatment. We will continue on laxative. We will continue to monitor the patient closely with Dr. Machuca. labs noted Nutritional Asmnt/Malnutr-PDOC - Dietary Evaluation Malnutrition Findings (Please click <Entered> for more info): Nutritional Asmnt/Malnutrition Start: 12/17/18 11: 18 Text: Status: Complete Freq: Protocol: Document 12/17/18 11:21 MMELENA (Rec: 12/17/18 11:46 MMELENA RODRIGEZ- FNS1) Nutritional Asmnt/Malnutrition Patient General Information Nutritional Screening Low Risk Diagnosis Psychosis Pertinent Medical Hx/Surgical Hx chronic low back pain, psych disorder, Alzheimer's dementia , constipation. Subjective Information Patient was admitted from [facility] due to aggressive behavior, agitation and wandering around the facility. Per nursing notes, patient easily agitated and irritable. Patient was seen wanding the halls at time of visit. Per nursing, tolerating diet without difficulty. Current Diet Order/ Nutrition Support Regular Patient / S.O Not Indicated Pertinent Medications maalox, colace, MOM, Theragran Pertinent Labs (12/12) WNL, A1C 5.8 Nutritional Hx/Data Height 1.65 m Height (Calculated Centimeters) 165.1 Current Weight (lbs) 79.379 kg Weight (Calculated Kilograms) 79.4 Weight (Calculated Grams) 32277.7 [place] Body Weight 136 % [place] Body Weight 128 Body Mass Index (BMI) 29.1 Recent Weight Change No Weight Status Overweight GI Symptoms GI Symptoms None Last BM 12/16 x 1 Difficult in: None Cultural/Ethnic/Temple Belief none indicated Usual diet at home unknown Skin Integrity/Comment: Juan 21, intact Current %PO Good (75-100%) Estimated Nutritional Goals BEE in Kcals: Adj wt of IBW Calories/Kcals/Kg 66kg ADj bw 25-30kcal/kg Kcals Calculated ~5420-6868 kcal/day Protein: Adj wt of IBW Protein g/k-1.2 gm/kg Protein Calculated ~65-80 gm/day Fluid: ml ~3062-3348 ml/day (1 ml/kcal) Nutritional Problem No current Nutrition Prob Problem No nutrition diagnosis at this time Intervention/Recommendation Comments 1. Continue regular diet as tolerated by patient. Expected Outcomes/Goals Expected Outcomes/Goals oral intake >75% of meals, weight stable or trend toward IBW, nutrition related labs WNL F/U LR 12/24-
--- NOTE | 2018-12-21 21:52 | Progress Notes ---
DATE: 12/21/2018 PSYCHIATRIC PROGRESS NOTE SUBJECTIVE: Staff was spoken to. The patient is interviewed. Mood is noted to be irritable. Affect is constricted. The patient is screaming and yelling. The patient is very aggressive. The patient has to be given a dose of the Zyprexa and Benadryl to calm him down. The patient has no insight into his illness. The patient is still very aggressive and paranoid. The patient is not making any sense. The patient is going on a tangent. PLAN: To continue the patient with the supportive therapy, encouraged the patient to verbalize the concerns. The patient's Depakote is going to be raised at this time. [facility]# [id number]
[2018-12-22] MEDS: Multivitamin Tab PO SCH (08:17)
--- NOTE | 2018-12-22 12:59 | Internal Medicine Prog Note ---
Internal Medicine Subjective - Subjective Patient seen and examined:: with staff, chart reviewed Patient is:: awake, verbal, interactive Per staff patient has:: no adverse event, no episodes of fall, agitated Internal Medicine Objective - Physical Exam Vitals and I&O: Vital Signs Temp 97.4 F 12/22/18 06:42 Pulse 87 12/22/18 06:42 Resp 20 12/22/18 06:42 BP 124/61 12/22/18 06:42 Pulse Ox 97 12/22/18 06:42 Intake & Output 12/21/18 12/22/18 12/22/18 18:59 06:59 18:59 Intake Total 1200 120 Balance 1200 120 Intake: Oral 1200 120 Other: # Voids 3 3 # Bowel Movements 1 Active Medications: Current Medications Acetaminophen (Tylenol) 650 mg PO Q4HR PRN PRN Reason: Mild Pain (Scale 1-3) Stop: 02/10/19 20:04 Last Admin: 12/13/18 04:09 Dose: 650 mg Acetaminophen (Tylenol) 650 mg PO Q4H PRN PRN Reason: TEMP ABOVE 100 Stop: 02/12/19 11:45 Al Hydrox/Mg Hydrox/Simethicone (Maalox) 30 ml PO Q4HR PRN PRN Reason: GI DISTRESS Stop: 02/10/19 20:04 Last Admin: 12/13/18 04:10 Dose: 30 ml Divalproex Sodium (Depakote Dr) 500 mg PO BID [facility]; Protocol Stop: 02/18/19 08:59 Last Admin: 12/22/18 08:17 Dose: 500 mg Fluphenazine HCl (Prolixin) 5 mg PO BID [facility]; Protocol Stop: 02/13/19 16:59 Last Admin: 12/22/18 08:17 Dose: 5 mg Ibuprofen (Motrin) 800 mg PO BID PRN PRN Reason: back pain Stop: 02/10/19 21:55 Last Admin: 12/22/18 06:36 Dose: 800 mg Lorazepam (Ativan) 0.5 mg PO Q4HR PRN; Protocol PRN Reason: Agitation Stop: 01/11/19 20:04 Last Admin: 12/21/18 18:18 Dose: 0.5 mg Magnesium Hydroxide (Milk Of Magnesia) 30 ml PO HS PRN PRN Reason: Constipation Memantine (Namenda) 10 mg PO BID [facility] Stop: 02/15/19 16:59 Last Admin: 12/22/18 08:17 Dose: 10 mg Multivitamins/Vitamin C (Theragran) 1 tab PO DAILY [facility] Stop: 02/11/19 08:59 Last Admin: 12/22/18 08:17 Dose: 1 tab Olanzapine (Zyprexa) 5 mg PO BID [facility]; Protocol Stop: 02/20/19 08:59 Quetiapine Fumarate (Seroquel) 200 mg PO BID [facility]; Protocol Stop: 02/11/19 08:59 Last Admin: 12/22/18 08:17 Dose: 200 mg Quetiapine Fumarate (Seroquel) 400 mg PO HS [facility]; Protocol Stop: 02/11/19 20:59 Last Admin: 12/21/18 20:24 Dose: 400 mg Zolpidem Tartrate (Ambien) 5 mg PO HS PRN PRN Reason: Insomnia Stop: 02/10/19 20:04 Last Admin: 12/21/18 20:24 Dose: 5 mg General: demented HEENT: NC/AT, PERRLA, EOMI Neck: Supple, No JVD Lungs: CTAB Cardiovascular: RRR, Normal S1, Normal S2 Abdomen: soft, non-tender, thin, positive bowel sound Extremities: excoriation Neurological: no change Internal Medicine Assmt/Plan - Assessment Assessment: ASSESSMENT AND PLAN: Low back pain, Alzheimer's dementia, psych disorder, constipation. - Plan Plan: PLAN: We will refer the patient nonsteroidal anti-inflammatory drugs. We will refer the patient's medication treatment. We will continue on laxative. We will continue to monitor the patient closely with Dr. Machuca. labs noted Nutritional Asmnt/Malnutr-PDOC - Dietary Evaluation Malnutrition Findings (Please click <Entered> for more info): Nutritional Asmnt/Malnutrition Start: 12/17/18 11: 18 Text: Status: Complete Freq: Protocol: Document 12/17/18 11:21 MARYANN (Rec: 12/17/18 11:46 MARYANN RODRIGEZ- FNS1) Nutritional Asmnt/Malnutrition Patient General Information Nutritional Screening Low Risk Diagnosis Psychosis Pertinent Medical Hx/Surgical Hx chronic low back pain, psych disorder, Alzheimer's dementia , constipation. Subjective Information Patient was admitted from [facility] due to aggressive behavior, agitation and wandering around the facility. Per nursing notes, patient easily agitated and irritable. Patient was seen wanding the halls at time of visit. Per nursing, tolerating diet without difficulty. Current Diet Order/ Nutrition Support Regular Patient / S.O Not Indicated Pertinent Medications maalox, colace, MOM, Theragran Pertinent Labs (12/12) WNL, A1C 5.8 Nutritional Hx/Data Height 1.65 m Height (Calculated Centimeters) 165.1 Current Weight (lbs) 79.379 kg Weight (Calculated Kilograms) 79.4 Weight (Calculated Grams) 31386.7 [place] Body Weight 136 % [place] Body Weight 128 Body Mass Index (BMI) 29.1 Recent Weight Change No Weight Status Overweight GI Symptoms GI Symptoms None Last BM 12/16 x 1 Difficult in: None Cultural/Ethnic/Hinduism Belief none indicated Usual diet at home unknown Skin Integrity/Comment: Juan 21, intact Current %PO Good (75-100%) Estimated Nutritional Goals BEE in Kcals: Adj wt of IBW Calories/Kcals/Kg 66kg ADj bw 25-30kcal/kg Kcals Calculated ~9853-2059 kcal/day Protein: Adj wt of IBW Protein g/k-1.2 gm/kg Protein Calculated ~65-80 gm/day Fluid: ml ~6663-9566 ml/day (1 ml/kcal) Nutritional Problem No current Nutrition Prob Problem No nutrition diagnosis at this time Intervention/Recommendation Comments 1. Continue regular diet as tolerated by patient. Expected Outcomes/Goals Expected Outcomes/Goals oral intake >75% of meals, weight stable or trend toward IBW, nutrition related labs WNL F/U LR
--- NOTE | 2018-12-23 03:47 | Progress Notes ---
DATE: 12/22/2018 SUBJECTIVE: Staff was spoken to. The patient is interviewed. Mood is noted to be irritable. Affect is constricted. The patient is pacing on the unit. Coping skills are noted to be poor. The patient's medication has been changed to Zyprexa. The patient has been able to tolerate, but compared to yesterday, he is a little bit I told, at this time. The patient continues to be paranoid. The impulsivity is a major problem. PLAN: To continue the patient with the supportive therapy, encouraged the patient to verbalize the concerns rather than to act out. JOB# [id number]
[2018-12-23] MEDS: Multivitamin Tab PO SCH (08:25)
--- NOTE | 2018-12-23 12:34 | Internal Medicine Prog Note ---
Internal Medicine Subjective - Subjective Patient seen and examined:: with staff, chart reviewed Patient is:: awake, verbal, interactive Per staff patient has:: no adverse event, no episodes of fall, agitated Internal Medicine Objective - Physical Exam Vitals and I&O: Vital Signs Temp 97.1 F 12/22/18 20:00 Pulse 87 12/22/18 20:00 Resp 17 12/23/18 08:00 BP 115/70 12/22/18 20:00 Pulse Ox 97 12/22/18 20:00 Intake & Output 12/22/18 12/23/18 12/23/18 18:59 06:59 18:59 Intake Total 120 Balance 120 Intake: Oral 120 Other: # Voids 3 3 # Bowel Movements 1 Active Medications: Current Medications Acetaminophen (Tylenol) 650 mg PO Q4HR PRN PRN Reason: Mild Pain (Scale 1-3) Stop: 02/10/19 20:04 Last Admin: 12/13/18 04:09 Dose: 650 mg Acetaminophen (Tylenol) 650 mg PO Q4H PRN PRN Reason: TEMP ABOVE 100 Stop: 02/12/19 11:45 Al Hydrox/Mg Hydrox/Simethicone (Maalox) 30 ml PO Q4HR PRN PRN Reason: GI DISTRESS Stop: 02/10/19 20:04 Last Admin: 12/13/18 04:10 Dose: 30 ml Divalproex Sodium (Depakote Dr) 500 mg PO BID [facility]; Protocol Stop: 02/18/19 08:59 Last Admin: 12/23/18 08:24 Dose: 500 mg Fluphenazine HCl (Prolixin) 5 mg PO BID [facility]; Protocol Stop: 02/13/19 16:59 Last Admin: 12/23/18 08:25 Dose: 5 mg Ibuprofen (Motrin) 800 mg PO BID PRN PRN Reason: back pain Stop: 02/10/19 21:55 Last Admin: 12/22/18 06:36 Dose: 800 mg Lorazepam (Ativan) 0.5 mg PO Q4HR PRN; Protocol PRN Reason: Agitation Stop: 01/11/19 20:04 Last Admin: 12/21/18 18:18 Dose: 0.5 mg Magnesium Hydroxide (Milk Of Magnesia) 30 ml PO HS PRN PRN Reason: Constipation Memantine (Namenda) 10 mg PO BID [facility] Stop: 02/15/19 16:59 Last Admin: 12/23/18 08:25 Dose: 10 mg Multivitamins/Vitamin C (Theragran) 1 tab PO DAILY [facility] Stop: 02/11/19 08:59 Last Admin: 12/23/18 08:25 Dose: 1 tab Olanzapine (Zyprexa) 5 mg PO BID [facility]; Protocol Stop: 02/20/19 08:59 Quetiapine Fumarate (Seroquel) 200 mg PO BID [facility]; Protocol Stop: 02/11/19 08:59 Last Admin: 12/23/18 08:25 Dose: 200 mg Quetiapine Fumarate (Seroquel) 400 mg PO HS [facility]; Protocol Stop: 02/11/19 20:59 Last Admin: 12/22/18 20:19 Dose: 400 mg Zolpidem Tartrate (Ambien) 5 mg PO HS PRN PRN Reason: Insomnia Stop: 02/10/19 20:04 Last Admin: 12/22/18 20:20 Dose: 5 mg General: demented HEENT: NC/AT, PERRLA, EOMI Neck: Supple, No JVD Lungs: CTAB Cardiovascular: RRR, Normal S1, Normal S2 Abdomen: soft, non-tender, thin, positive bowel sound Extremities: excoriation Neurological: no change Internal Medicine Assmt/Plan - Assessment Assessment: ASSESSMENT AND PLAN: Low back pain, Alzheimer's dementia, psych disorder, constipation. - Plan Plan: PLAN: We will refer the patient nonsteroidal anti-inflammatory drugs. We will refer the patient's medication treatment. We will continue on laxative. We will continue to monitor the patient closely with Dr. Machuca. labs noted Nutritional Asmnt/Malnutr-PDOC - Dietary Evaluation Malnutrition Findings (Please click <Entered> for more info): Nutritional Asmnt/Malnutrition Start: 12/17/18 11: 18 Text: Status: Complete Freq: Protocol: Document 12/17/18 11:21 MARYANN (Rec: 12/17/18 11:46 MARYANN RODRIGEZ- FNS1) Nutritional Asmnt/Malnutrition Patient General Information Nutritional Screening Low Risk Diagnosis Psychosis Pertinent Medical Hx/Surgical Hx chronic low back pain, psych disorder, Alzheimer's dementia , constipation. Subjective Information Patient was admitted from [facility] due to aggressive behavior, agitation and wandering around the facility. Per nursing notes, patient easily agitated and irritable. Patient was seen wanding the halls at time of visit. Per nursing, tolerating diet without difficulty. Current Diet Order/ Nutrition Support Regular Patient / S.O Not Indicated Pertinent Medications maalox, colace, MOM, Theragran Pertinent Labs (12/12) WNL, A1C 5.8 Nutritional Hx/Data Height 1.65 m Height (Calculated Centimeters) 165.1 Current Weight (lbs) 79.379 kg Weight (Calculated Kilograms) 79.4 Weight (Calculated Grams) 25966.7 [place] Body Weight 136 % [place] Body Weight 128 Body Mass Index (BMI) 29.1 Recent Weight Change No Weight Status Overweight GI Symptoms GI Symptoms None Last BM 12/16 x 1 Difficult in: None Cultural/Ethnic/Sikhism Belief none indicated Usual diet at home unknown Skin Integrity/Comment: Juan 21, intact Current %PO Good (75-100%) Estimated Nutritional Goals BEE in Kcals: Adj wt of IBW Calories/Kcals/Kg 66kg ADj bw 25-30kcal/kg Kcals Calculated ~9164-2795 kcal/day Protein: Adj wt of IBW Protein g/k-1.2 gm/kg Protein Calculated ~65-80 gm/day Fluid: ml ~7771-4803 ml/day (1 ml/kcal) Nutritional Problem No current Nutrition Prob Problem No nutrition diagnosis at this time Intervention/Recommendation Comments 1. Continue regular diet as tolerated by patient. Expected Outcomes/Goals Expected Outcomes/Goals oral intake >75% of meals, weight stable or trend toward IBW, nutrition related labs WNL F/U LR 12/24-
--- NOTE | 2018-12-24 02:43 | Progress Notes ---
DATE: 12/23/2018 PSYCHIATRIC PROGRESS NOTE SUBJECTIVE: Staff was spoken to. The patient is interviewed. Mood is noted to be irritable. Affect is constricted. The patient is still testing the limits. The patient has no insight into his illness. The patient has been pacing most of the time on the unit. The patient is paranoid and is very demanding. The patient is currently on two antipsychotic medications and a mood stabilizer, even then, the patient has been having problems. In view of the psychosis and aggressive behavior, it is decided to change the Zyprexa to 10 mg twice a day and gradually decrease the dose of the Seroquel and follow the patient up. ASSESSMENT: The patient is still psychotic and is not ready to be discharged to a lower level of care in view of his impulsive behavior. JOB# [id number]
[2018-12-24] MEDS: Multivitamin Tab PO SCH (08:15)
--- NOTE | 2018-12-24 13:59 | Internal Medicine Prog Note ---
Internal Medicine Subjective - Subjective Service Date: 12/24/18 Patient is:: awake, verbal, interactive Per staff patient has:: no adverse event, no episodes of fall, agitated Internal Medicine Objective - Physical Exam Vitals and I&O: Vital Signs Temp 98.1 F 12/24/18 06:35 Pulse 65 12/24/18 06:35 Resp 17 12/24/18 08:00 BP 113/63 12/24/18 06:35 Pulse Ox 97 12/24/18 06:35 Intake & Output 12/23/18 12/24/18 12/24/18 18:59 06:59 18:59 Intake Total 1200 240 Balance 1200 240 Intake: Oral 1200 240 Other: # Voids 3 1 # Bowel Movements 0 Active Medications: Current Medications Acetaminophen (Tylenol) 650 mg PO Q4HR PRN PRN Reason: Mild Pain (Scale 1-3) Stop: 02/10/19 20:04 Last Admin: 12/13/18 04:09 Dose: 650 mg Acetaminophen (Tylenol) 650 mg PO Q4H PRN PRN Reason: TEMP ABOVE 100 Stop: 02/12/19 11:45 Al Hydrox/Mg Hydrox/Simethicone (Maalox) 30 ml PO Q4HR PRN PRN Reason: GI DISTRESS Stop: 02/10/19 20:04 Last Admin: 12/13/18 04:10 Dose: 30 ml Divalproex Sodium (Depakote Dr) 500 mg PO BID [facility]; Protocol Stop: 02/18/19 08:59 Last Admin: 12/24/18 08:15 Dose: 500 mg Fluphenazine HCl (Prolixin) 5 mg PO BID [facility]; Protocol Stop: 02/13/19 16:59 Last Admin: 12/24/18 08:15 Dose: 5 mg Ibuprofen (Motrin) 800 mg PO BID PRN PRN Reason: back pain Stop: 02/10/19 21:55 Last Admin: 12/23/18 20:19 Dose: 800 mg Lorazepam (Ativan) 0.5 mg PO Q4HR PRN; Protocol PRN Reason: Agitation Stop: 01/11/19 20:04 Last Admin: 12/23/18 23:05 Dose: 0.5 mg Magnesium Hydroxide (Milk Of Magnesia) 30 ml PO HS PRN PRN Reason: Constipation Memantine (Namenda) 10 mg PO BID [facility] Stop: 02/15/19 16:59 Last Admin: 12/24/18 08:16 Dose: 10 mg Multivitamins/Vitamin C (Theragran) 1 tab PO DAILY [facility] Stop: 02/11/19 08:59 Last Admin: 12/24/18 08:15 Dose: 1 tab Olanzapine (Zyprexa) 10 mg PO BID [facility]; Protocol Stop: 02/22/19 08:59 Quetiapine Fumarate (Seroquel) 400 mg PO HS [facility]; Protocol Stop: 02/11/19 20:59 Last Admin: 12/23/18 20:18 Dose: 400 mg Zolpidem Tartrate (Ambien) 5 mg PO HS PRN PRN Reason: Insomnia Stop: 02/10/19 20:04 Last Admin: 12/22/18 20:20 Dose: 5 mg General: demented HEENT: NC/AT, PERRLA, EOMI Neck: Supple, No JVD Lungs: CTAB Cardiovascular: RRR, Normal S1, Normal S2 Abdomen: soft, non-tender, thin, positive bowel sound Extremities: excoriation Neurological: no change Internal Medicine Assmt/Plan - Assessment Assessment: ASSESSMENT AND PLAN: Low back pain, Alzheimer's dementia, psych disorder, constipation. - Plan Plan: We will refer the patient nonsteroidal anti-inflammatory drugs. We will refer the patient's medication treatment. We will continue on laxative. We will continue to monitor the patient closely with Dr. Machuca. labs noted Nutritional Asmnt/Malnutr-PDOC - Dietary Evaluation Malnutrition Findings (Please click <Entered> for more info): Nutritional Asmnt/Malnutrition Start: 12/17/18 11: 18 Text: Status: Complete Freq: Protocol: Document 12/17/18 11:21 MARYANN (Rec: 12/17/18 11:46 MARYANN RODRIGEZ- FNS1) Nutritional Asmnt/Malnutrition Patient General Information Nutritional Screening Low Risk Diagnosis Psychosis Pertinent Medical Hx/Surgical Hx chronic low back pain, psych disorder, Alzheimer's dementia , constipation. [facility]ive [facility], agitation and wandering around the facility. Per nursing notes, patient easily agitated and irritable. Patient was seen wanding the halls at time of visit. Per nursing, tolerating diet without difficulty. Current Diet Order/ Nutrition Support Regular Patient / S.O Not Indicated Pertinent Medications maalox, colace, MOM, Theragran Pertinent Labs (12/12) WNL, A1C 5.8 Nutritional Hx/Data Height 5 ft 5 in Height (Calculated Centimeters) 165.1 Current Weight (lbs) 175 lb Weight (Calculated Kilograms) 79.4 Weight (Calculated Grams) 17342.7 [place] Body Weight 136 % [place] Body Weight 128 Body Mass Index (BMI) 29.1 Recent Weight Change No Weight Status Overweight GI Symptoms GI Symptoms None Last BM 12/16 x 1 Difficult in: None Cultural/Ethnic/Zoroastrian Belief none indicated Usual diet at home unknown Skin Integrity/Comment: Juan 21, intact Current %PO Good (75-100%) Estimated Nutritional Goals BEE in Kcals: Adj wt of IBW Calories/Kcals/Kg 66kg ADj bw 25-30kcal/kg Kcals Calculated ~2546-3887 kcal/day Protein: Adj wt of IBW Protein g/k-1.2 gm/kg Protein Calculated ~65-80 gm/day Fluid: ml ~7214-6000 ml/day (1 ml/kcal) Nutritional Problem No current Nutrition Prob Problem No nutrition diagnosis at this time Intervention/Recommendation Comments 1. Continue regular diet as tolerated by patient. Expected Outcomes/Goals Expected Outcomes/Goals oral intake >75% of meals, weight stable or trend toward IBW, nutrition related labs WNL F/U LR
--- NOTE | 2018-12-24 18:36 | Progress Notes ---
DATE: 12/24/2018 SUBJECTIVE: Staff was spoken to. The patient is interviewed. Mood is noted to be irritable. Affect is constricted. Insight and judgment at this time are noted to be still impaired. Impulse control is noted to be limited. Coping skills are noted to be limited. The patient has been having difficult time to cope with the stress. No side effects to the medications are noted. 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 The patient is going on a tangent. The patient has no insight into his illness. ASSESSMENT: The patient is still impulsive. PLAN: To continue the patient with the supportive therapy, encouraged the patient to verbalize the concerns rather than to act out. JOB# [id number]
[2018-12-25] MEDS: Multivitamin Tab PO SCH (08:26)
--- NOTE | 2018-12-25 11:45 | Progress Notes ---
DATE: 12/25/2018 SUBJECTIVE: Staff was spoken to. The patient is interviewed. Mood is noted to be irritable. Affect is constricted. Insight and judgment at this time are noted to be still impaired. Impulse control is noted to be limited. The patient has been pacing on the unit, but compared to before the patient could be redirectable. No side effects to the medications are noted. The patient's aggressive behavior seems to be coming under control. ASSESSMENT: The patient is stabilizing. PLAN: To continue the patient with the current medications and work with the correctional counselor/case manager with regards to the placement of the patient back at the shelter facility. JOB# [id number]
--- NOTE | 2018-12-25 15:36 | Internal Medicine Prog Note ---
Internal Medicine Subjective - Subjective Service Date: 12/25/18 Patient is:: awake, verbal, interactive Per staff patient has:: no adverse event, no episodes of fall, agitated Internal Medicine Objective - Physical Exam Vitals and I&O: Vital Signs Temp 97.2 F 12/25/18 06:49 Pulse 87 12/25/18 06:49 Resp 20 12/25/18 06:49 BP 122/83 12/25/18 06:49 Pulse Ox 92 12/25/18 06:49 Intake & Output 12/24/18 12/25/18 12/25/18 18:59 06:59 18:59 Intake Total 1250 480 Balance 1250 480 Intake: Oral 1250 480 Other: # Voids 2 # Bowel Movements 1 Active Medications: Current Medications Acetaminophen (Tylenol) 650 mg PO Q4HR PRN PRN Reason: Mild Pain (Scale 1-3) Stop: 02/10/19 20:04 Last Admin: 12/13/18 04:09 Dose: 650 mg Acetaminophen (Tylenol) 650 mg PO Q4H PRN PRN Reason: TEMP ABOVE 100 Stop: 02/12/19 11:45 Al Hydrox/Mg Hydrox/Simethicone (Maalox) 30 ml PO Q4HR PRN PRN Reason: GI DISTRESS Stop: 02/10/19 20:04 Last Admin: 12/13/18 04:10 Dose: 30 ml Divalproex Sodium (Depakote Dr) 500 mg PO BID [facility]; Protocol Stop: 02/18/19 08:59 Last Admin: 12/25/18 08:26 Dose: 500 mg Fluphenazine HCl (Prolixin) 5 mg PO BID [facility]; Protocol Stop: 02/13/19 16:59 Last Admin: 12/25/18 08:25 Dose: 5 mg Ibuprofen (Motrin) 800 mg PO BID PRN PRN Reason: back pain Stop: 02/10/19 21:55 Last Admin: 12/23/18 20:19 Dose: 800 mg Lorazepam (Ativan) 0.5 mg PO Q4HR PRN; Protocol PRN Reason: Agitation Stop: 01/11/19 20:04 Last Admin: 12/25/18 13:07 Dose: 0.5 mg Magnesium Hydroxide (Milk Of Magnesia) 30 ml PO HS PRN PRN Reason: Constipation Memantine (Namenda) 10 mg PO BID [facility] Stop: 02/15/19 16:59 Last Admin: 12/25/18 08:26 Dose: 10 mg Multivitamins/Vitamin C (Theragran) 1 tab PO DAILY [facility] Stop: 02/11/19 08:59 Last Admin: 12/25/18 08:26 Dose: 1 tab Olanzapine (Zyprexa) 10 mg PO BID [facility]; Protocol Stop: 02/22/19 08:59 Last Admin: 12/25/18 08:26 Dose: 10 mg Quetiapine Fumarate (Seroquel) 400 mg PO HS [facility]; Protocol Stop: 02/11/19 20:59 Last Admin: 12/24/18 20:34 Dose: 400 mg Zolpidem Tartrate (Ambien) 5 mg PO HS PRN PRN Reason: Insomnia Stop: 02/10/19 20:04 Last Admin: 12/24/18 20:35 Dose: 5 mg General: demented HEENT: NC/AT, PERRLA, EOMI Neck: Supple, No JVD Lungs: CTAB Cardiovascular: RRR, Normal S1, Normal S2 Abdomen: soft, non-tender, thin, positive bowel sound Extremities: excoriation Neurological: no change Internal Medicine Assmt/Plan - Assessment Assessment: ASSESSMENT AND PLAN: Low back pain, Alzheimer's dementia, psych disorder, constipation. - Plan Plan: We will refer the patient nonsteroidal anti-inflammatory drugs. We will refer the patient's medication treatment. We will continue on laxative. We will continue to monitor the patient closely with Dr. Machuca. labs noted Nutritional Asmnt/Malnutr-PDOC - Dietary Evaluation Malnutrition Findings (Please click <Entered> for more info): Nutritional Asmnt/Malnutrition Start: 12/17/18 11: 18 Text: Status: Complete Freq: Protocol: Document 12/17/18 11:21 MARYANN (Rec: 12/17/18 11:46 MARYANN RODRIGEZ- FNS1) Nutritional Asmnt/Malnutrition Patient General Information Nutritional Screening Low Risk Diagnosis Psychosis Pertinent Medical Hx/Surgical Hx chronic low back pain, psych disorder, Alzheimer's dementia , constipation. Subjective Information Patient was admitted from [facility] due to aggressive behavior, agitation and wandering around the facility. Per nursing notes, patient easily agitated and irritable. Patient was seen wanding the halls at time of visit. Per nursing, tolerating diet without difficulty. Current Diet Order/ Nutrition Support Regular Patient / S.O Not Indicated Pertinent Medications maalox, colace, MOM, Theragran Pertinent Labs (12/12) WNL, A1C 5.8 Nutritional Hx/Data Height 5 ft 5 in Height (Calculated Centimeters) 165.1 Current Weight (lbs) 175 lb Weight (Calculated Kilograms) 79.4 Weight (Calculated Grams) 52302.7 [place] Body Weight 136 % [place] Body Weight 128 Body Mass Index (BMI) 29.1 Recent Weight Change No Weight Status Overweight GI Symptoms GI Symptoms None Last BM 12/16 x 1 Difficult in: None Cultural/Ethnic/Buddhism Belief none indicated Usual diet at home unknown Skin Integrity/Comment: Juan 21, intact Current %PO Good (75-100%) Estimated Nutritional Goals BEE in Kcals: Adj wt of IBW Calories/Kcals/Kg 66kg ADj bw 25-30kcal/kg Kcals Calculated ~7242-2186 kcal/day Protein: Adj wt of IBW Protein g/k-1.2 gm/kg Protein Calculated ~65-80 gm/day Fluid: ml ~6561-8948 ml/day (1 ml/kcal) Nutritional Problem No current Nutrition Prob Problem No nutrition diagnosis at this time Intervention/Recommendation Comments 1. Continue regular diet as tolerated by patient. Expected Outcomes/Goals Expected Outcomes/Goals oral intake >75% of meals, weight stable or trend toward IBW, nutrition related labs WNL F/U LR 12/24-
[2018-12-26] MEDS: Multivitamin Tab PO SCH (08:31)
--- NOTE | 2018-12-26 12:32 | Internal Medicine Prog Note ---
Internal Medicine Subjective - Subjective Patient seen and examined:: with staff, chart reviewed Patient is:: awake, verbal, interactive Per staff patient has:: no adverse event, no episodes of fall, agitated Internal Medicine Objective - Physical Exam Vitals and I&O: Vital Signs Temp 97.0 F 12/26/18 06:18 Pulse 61 12/26/18 06:18 Resp 18 12/26/18 08:00 BP 113/74 12/26/18 06:18 Pulse Ox 99 12/26/18 06:18 Intake & Output 12/25/18 12/26/18 12/26/18 18:59 06:59 18:59 Intake Total 1400 180 Balance 1400 180 Intake: Oral 1400 180 Other: # Voids 1 # Bowel Movements 0 Active Medications: Current Medications Acetaminophen (Tylenol) 650 mg PO Q4HR PRN PRN Reason: Mild Pain (Scale 1-3) Stop: 02/10/19 20:04 Last Admin: 12/13/18 04:09 Dose: 650 mg Acetaminophen (Tylenol) 650 mg PO Q4H PRN PRN Reason: TEMP ABOVE 100 Stop: 02/12/19 11:45 Al Hydrox/Mg Hydrox/Simethicone (Maalox) 30 ml PO Q4HR PRN PRN Reason: GI DISTRESS Stop: 02/10/19 20:04 Last Admin: 12/13/18 04:10 Dose: 30 ml Divalproex Sodium (Depakote Dr) 500 mg PO BID [facility]; Protocol Stop: 02/18/19 08:59 Last Admin: 12/26/18 08:31 Dose: 500 mg Fluphenazine HCl (Prolixin) 5 mg PO BID [facility]; Protocol Stop: 02/13/19 16:59 Last Admin: 12/26/18 08:34 Dose: 5 mg Ibuprofen (Motrin) 800 mg PO BID PRN PRN Reason: back pain Stop: 02/10/19 21:55 Last Admin: 12/23/18 20:19 Dose: 800 mg Lorazepam (Ativan) 0.5 mg PO Q4HR PRN; Protocol PRN Reason: Agitation Stop: 01/11/19 20:04 Last Admin: 12/26/18 00:46 Dose: 0.5 mg Magnesium Hydroxide (Milk Of Magnesia) 30 ml PO HS PRN PRN Reason: Constipation Memantine (Namenda) 10 mg PO BID [facility] Stop: 02/15/19 16:59 Last Admin: 12/26/18 08:31 Dose: 10 mg Multivitamins/Vitamin C (Theragran) 1 tab PO DAILY [facility] Stop: 02/11/19 08:59 Last Admin: 12/26/18 08:31 Dose: 1 tab Olanzapine (Zyprexa) 10 mg PO BID [facility]; Protocol Stop: 02/22/19 08:59 Last Admin: 12/26/18 08:31 Dose: 10 mg Quetiapine Fumarate (Seroquel) 400 mg PO HS [facility]; Protocol Stop: 02/11/19 20:59 Last Admin: 12/25/18 21:36 Dose: 400 mg Zolpidem Tartrate (Ambien) 5 mg PO HS PRN PRN Reason: Insomnia Stop: 02/10/19 20:04 Last Admin: 12/25/18 21:36 Dose: 5 mg General: demented HEENT: NC/AT, PERRLA, EOMI Neck: Supple, No JVD Lungs: CTAB Cardiovascular: RRR, Normal S1, Normal S2 Abdomen: soft, non-tender, thin, positive bowel sound Extremities: excoriation Neurological: no change Internal Medicine Assmt/Plan - Assessment Assessment: ASSESSMENT AND PLAN: Low back pain, Alzheimer's dementia, psych disorder, constipation. - Plan Plan: PLAN: We will refer the patient nonsteroidal anti-inflammatory drugs. We will refer the patient's medication treatment. We will continue on laxative. We will continue to monitor the patient closely with Dr. Machuca. labs noted Nutritional Asmnt/Malnutr-PDOC - Dietary Evaluation Malnutrition Findings (Please click <Entered> for more info): Nutritional Asmnt/Malnutrition Start: 12/17/18 11: 18 Text: Status: Complete Freq: Protocol: Document 12/17/18 11:21 MARYANN (Rec: 12/17/18 11:46 MARYANN RODRIGEZ- [email or web address]) Nutritional Asmnt/Malnutrition Patient General Information Nutritional Screening Low Risk Diagnosis Psychosis Pertinent Medical Hx/Surgical Hx chronic low back pain, psych disorder, Alzheimer's dementia , constipation. Subjective Information Patient was admitted from [facility] due to aggressive behavior, agitation and wandering around the facility. Per nursing notes, patient easily agitated and irritable. Patient was seen wanding the halls at time of visit. Per nursing, tolerating diet without difficulty. Current Diet Order/ Nutrition Support Regular Patient / S.O Not Indicated Pertinent Medications maalox, colace, MOM, Theragran Pertinent Labs (12/12) WNL, A1C 5.8 Nutritional Hx/Data Height 1.65 m Height (Calculated Centimeters) 165.1 Current Weight (lbs) 79.379 kg Weight (Calculated Kilograms) 79.4 Weight (Calculated Grams) 06061.7 [place] Body Weight 136 % [place] Body Weight 128 Body Mass Index (BMI) 29.1 Recent Weight Change No Weight Status Overweight GI Symptoms GI Symptoms None Last BM 12/16 x 1 Difficult in: None Cultural/Ethnic/Nondenominational Belief none indicated Usual diet at home unknown Skin Integrity/Comment: Juan 21, intact Current %PO Good (75-100%) Estimated Nutritional Goals BEE in Kcals: Adj wt of IBW Calories/Kcals/Kg 66kg ADj bw 25-30kcal/kg Kcals Calculated ~7390-1846 kcal/day Protein: Adj wt of IBW Protein g/k-1.2 gm/kg Protein Calculated ~65-80 gm/day Fluid: ml ~1023-8303 ml/day (1 ml/kcal) Nutritional Problem No current Nutrition Prob Problem No nutrition diagnosis at this time Intervention/Recommendation Comments 1. Continue regular diet as tolerated by patient. Expected Outcomes/Goals Expected Outcomes/Goals oral intake >75% of meals, weight stable or trend toward IBW, nutrition related labs WNL F/U LR 12/24-
--- NOTE | 2018-12-27 00:31 | Progress Notes ---
DATE: 12/26/2018 PSYCHIATRIC PROGRESS NOTE SUBJECTIVE: Staff was spoken to. The patient is interviewed. Mood is noted to be irritable. The piano case maker has been trying to get the patient to the [facility] and the [facility] mentioned that they do not have any beds open, they cannot take the patient at this time. The patient's coping skills are noted to be poor. The patient is getting easily anxious. Aggressive behavior seems to be resolving. ASSESSMENT: The patient is paranoid, but not aggressive. PLAN: To continue the patient with the supportive therapy and followup. JOB# [id number]
[2018-12-27] MEDS: Fish Oil 1,000 MG SGL PO SCH (08:27)
[2018-12-27] MEDS: Multivitamin Tab PO SCH (08:27)
--- NOTE | 2018-12-27 13:02 | Internal Medicine Prog Note ---
Internal Medicine Subjective - Subjective Patient seen and examined:: with staff, chart reviewed Patient is:: awake, verbal, interactive Per staff patient has:: no adverse event, no episodes of fall, agitated Internal Medicine Objective - Physical Exam Vitals and I&O: Vital Signs Temp 98.4 F 12/27/18 06:11 Pulse 73 12/27/18 06:11 Resp 17 12/27/18 08:00 BP 110/68 12/27/18 06:11 Pulse Ox 99 12/27/18 06:11 Intake & Output 12/26/18 12/27/18 12/27/18 18:59 06:59 18:59 Intake Total 820 Balance 820 Intake: Oral 820 Other: # Voids 1 # Bowel Movements 0 Active Medications: Current Medications Acetaminophen (Tylenol) 650 mg PO Q4HR PRN PRN Reason: Mild Pain (Scale 1-3) Stop: 02/10/19 20:04 Last Admin: 12/13/18 04:09 Dose: 650 mg Acetaminophen (Tylenol) 650 mg PO Q4H PRN PRN Reason: TEMP ABOVE 100 Stop: 02/12/19 11:45 Al Hydrox/Mg Hydrox/Simethicone (Maalox) 30 ml PO Q4HR PRN PRN Reason: GI DISTRESS Stop: 02/10/19 20:04 Last Admin: 12/13/18 04:10 Dose: 30 ml Divalproex Sodium (Depakote Dr) 500 mg PO BID [facility]; Protocol Stop: 02/18/19 08:59 Last Admin: 12/27/18 08:27 Dose: 500 mg Fish Oil ([place] 3) 1,000 mg PO DAILY [facility] Stop: 02/25/19 08:59 Last Admin: 12/27/18 08:27 Dose: 1,000 mg Fluphenazine HCl (Prolixin) 5 mg PO BID [facility]; Protocol Stop: 02/13/19 16:59 Last Admin: 12/27/18 08:27 Dose: 5 mg Ibuprofen (Motrin) 800 mg PO BID PRN PRN Reason: back pain Stop: 02/10/19 21:55 Last Admin: 12/27/18 06:28 Dose: 800 mg Lorazepam (Ativan) 0.5 mg PO Q4HR PRN; Protocol PRN Reason: Agitation Stop: 01/11/19 20:04 Last Admin: 12/27/18 06:28 Dose: 0.5 mg Magnesium Hydroxide (Milk Of Magnesia) 30 ml PO HS PRN PRN Reason: Constipation Memantine (Namenda) 10 mg PO BID [facility] Stop: 02/15/19 16:59 Last Admin: 12/27/18 08:27 Dose: 10 mg Multivitamins/Vitamin C (Theragran) 1 tab PO DAILY [facility] Stop: 02/11/19 08:59 Last Admin: 12/27/18 08:27 Dose: 1 tab Olanzapine (Zyprexa) 10 mg PO BID [facility]; Protocol Stop: 02/22/19 08:59 Last Admin: 12/27/18 08:27 Dose: 10 mg Quetiapine Fumarate (Seroquel) 400 mg PO HS [facility]; Protocol Stop: 02/11/19 20:59 Last Admin: 12/26/18 20:44 Dose: 400 mg Zolpidem Tartrate (Ambien) 5 mg PO HS PRN PRN Reason: Insomnia Stop: 02/10/19 20:04 Last Admin: 12/26/18 20:45 Dose: 5 mg General: demented HEENT: NC/AT, PERRLA, EOMI Neck: Supple, No JVD Lungs: CTAB Cardiovascular: RRR, Normal S1, Normal S2 Abdomen: soft, non-tender, thin, positive bowel sound Extremities: excoriation Neurological: no change Internal Medicine Assmt/Plan - Assessment Assessment: ASSESSMENT AND PLAN: Low back pain, Alzheimer's dementia, psych disorder, constipation. - Plan Plan: PLAN: We will refer the patient nonsteroidal anti-inflammatory drugs. We will refer the patient's medication treatment. We will continue on laxative. We will continue to monitor the patient closely with Dr. Machuca. labs noted Nutritional Asmnt/Malnutr-PDOC - Dietary Evaluation Malnutrition Findings (Please click <Entered> for more info): Nutritional Asmnt/Malnutrition Start: 12/17/18 11: 18 Text: Status: Complete Freq: Protocol: Document 12/17/18 11:21 MARYANN (Rec: 12/17/18 11:46 MARYANN RODRIGEZ- FNS1) Nutritional Asmnt/Malnutrition Patient General Information Nutritional Screening Low Risk Diagnosis Psychosis Pertinent Medical Hx/Surgical Hx chronic low back pain, psych disorder, Alzheimer's dementia , constipation. Subjective Information Patient was admitted from [facility] due to aggressive behavior, agitation and wandering around the facility. Per nursing notes, patient easily agitated and irritable. Patient was seen wanding the halls at time of visit. Per nursing, tolerating diet without difficulty. Current Diet Order/ Nutrition Support Regular Patient / S.O Not Indicated Pertinent Medications maalox, colace, MOM, Theragran Pertinent Labs (12/12) WNL, A1C 5.8 Nutritional Hx/Data Height 1.65 m Height (Calculated Centimeters) 165.1 Current Weight (lbs) 79.379 kg Weight (Calculated Kilograms) 79.4 Weight (Calculated Grams) 54484.7 [place] Body Weight 136 % [place] Body Weight 128 Body Mass Index (BMI) 29.1 Recent Weight Change No Weight Status Overweight GI Symptoms GI Symptoms None Last BM 12/16 x 1 Difficult in: None Cultural/Ethnic/Baptism Belief none indicated Usual diet at home unknown Skin Integrity/Comment: Juan 21, intact Current %PO Good (75-100%) Estimated Nutritional Goals BEE in Kcals: Adj wt of IBW Calories/Kcals/Kg 66kg ADj bw 25-30kcal/kg Kcals Calculated ~4595-8781 kcal/day Protein: Adj wt of IBW Protein g/k-1.2 gm/kg Protein Calculated ~65-80 gm/day Fluid: ml ~1283-5197 ml/day (1 ml/kcal) Nutritional Problem No current Nutrition Prob Problem No nutrition diagnosis at this time Intervention/Recommendation Comments 1. Continue regular diet as tolerated by patient. Expected Outcomes/Goals Expected Outcomes/Goals oral intake >75% of meals, weight stable or trend toward IBW, nutrition related labs WNL F/U LR
--- NOTE | 2018-12-27 21:03 | Progress Notes ---
DATE: 12/27/2018 PSYCHIATRIC PROGRESS NOTE SUBJECTIVE: Staff was spoken to. The patient is interviewed. Mood is noted to be irritable. Affect is constricted. Insight and judgment are noted to be very much impaired. The patient is very aggressive and disruptive today. The patient has been destroying the furniture. 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 The patient is not making much sense. nanny/household manager has been mentioning that the place where he was staying at has no bed available and they are waiting for a bed open for the patient to go back. JOB# [id number]
[2018-12-28] MEDS: Fish Oil 1,000 MG SGL PO SCH (08:56)
[2018-12-28] MEDS: Multivitamin Tab PO SCH (08:57)
--- NOTE | 2018-12-28 12:26 | Internal Medicine Prog Note ---
Internal Medicine Subjective - Subjective Patient seen and examined:: with staff, chart reviewed Patient is:: awake, verbal, interactive Per staff patient has:: no adverse event, no episodes of fall, agitated Internal Medicine Objective - Physical Exam Vitals and I&O: Vital Signs Temp 97.8 F 12/28/18 06:54 Pulse 72 12/28/18 06:54 Resp 20 12/28/18 06:54 BP 129/74 12/28/18 06:54 Pulse Ox 99 12/28/18 06:54 Intake & Output 12/27/18 12/28/18 12/28/18 18:59 06:59 18:59 Intake Total 1800 Balance 1800 Intake: Oral 1800 Other: # Voids 5 3 # Bowel Movements 1 0 Active Medications: Current Medications Acetaminophen (Tylenol) 650 mg PO Q4HR PRN PRN Reason: Mild Pain (Scale 1-3) Stop: 02/10/19 20:04 Last Admin: 12/13/18 04:09 Dose: 650 mg Acetaminophen (Tylenol) 650 mg PO Q4H PRN PRN Reason: TEMP ABOVE 100 Stop: 02/12/19 11:45 Al Hydrox/Mg Hydrox/Simethicone (Maalox) 30 ml PO Q4HR PRN PRN Reason: GI DISTRESS Stop: 02/10/19 20:04 Last Admin: 12/13/18 04:10 Dose: 30 ml Divalproex Sodium (Depakote Dr) 500 mg PO BID [facility]; Protocol Stop: 02/18/19 08:59 Last Admin: 12/28/18 08:56 Dose: 500 mg Fish Oil ([place] 3) 1,000 mg PO DAILY [facility] Stop: 02/25/19 08:59 Last Admin: 12/28/18 08:56 Dose: 1,000 mg Fluphenazine HCl (Prolixin) 5 mg PO BID [facility]; Protocol Stop: 02/13/19 16:59 Last Admin: 12/28/18 08:56 Dose: 5 mg Ibuprofen (Motrin) 800 mg PO BID PRN PRN Reason: back pain Stop: 02/10/19 21:55 Last Admin: 12/27/18 06:28 Dose: 800 mg Lorazepam (Ativan) 0.5 mg PO Q4HR PRN; Protocol PRN Reason: Agitation Stop: 01/11/19 20:04 Last Admin: 12/28/18 08:58 Dose: 0.5 mg Magnesium Hydroxide (Milk Of Magnesia) 30 ml PO HS PRN PRN Reason: Constipation Memantine (Namenda) 10 mg PO BID [facility] Stop: 02/15/19 16:59 Last Admin: 12/28/18 08:57 Dose: 10 mg Multivitamins/Vitamin C (Theragran) 1 tab PO DAILY [facility] Stop: 02/11/19 08:59 Last Admin: 12/28/18 08:57 Dose: 1 tab Olanzapine (Zyprexa) 10 mg PO BID [facility]; Protocol Stop: 02/22/19 08:59 Last Admin: 12/28/18 08:57 Dose: 10 mg Quetiapine Fumarate (Seroquel) 400 mg PO HS [facility]; Protocol Stop: 02/11/19 20:59 Last Admin: 12/27/18 20:35 Dose: 400 mg Zolpidem Tartrate (Ambien) 5 mg PO HS PRN PRN Reason: Insomnia Stop: 02/10/19 20:04 Last Admin: 12/27/18 20:35 Dose: 5 mg General: demented HEENT: NC/AT, PERRLA, EOMI Neck: Supple, No JVD Lungs: CTAB Cardiovascular: RRR, Normal S1, Normal S2 Abdomen: soft, non-tender, thin, positive bowel sound Extremities: excoriation Neurological: no change Internal Medicine Assmt/Plan - Assessment Assessment: ASSESSMENT AND PLAN: Low back pain, Alzheimer's dementia, psych disorder, constipation. - Plan Plan: PLAN: We will refer the patient nonsteroidal anti-inflammatory drugs. We will refer the patient's medication treatment. We will continue on laxative. We will continue to monitor the patient closely with Dr. Machuca. labs noted Nutritional Asmnt/Malnutr-PDOC - Dietary Evaluation Malnutrition Findings (Please click <Entered> for more info): Nutritional Asmnt/Malnutrition Start: 12/17/18 11: 18 Text: Status: Complete Freq: Protocol: Document 12/17/18 11:21 MMELENA (Rec: 12/17/18 11:46 MARYANN RODRIGEZ- FNS1) Nutritional Asmnt/Malnutrition Patient General Information Nutritional Screening Low Risk Diagnosis Psychosis Pertinent Medical Hx/Surgical Hx chronic low back pain, psych disorder, Alzheimer's dementia , constipation. Subjective Information Patient was admitted from [facility] due to aggressive behavior, agitation and wandering around the facility. Per nursing notes, patient easily agitated and irritable. Patient was seen wanding the halls at time of visit. Per nursing, tolerating diet without difficulty. Current Diet Order/ Nutrition Support Regular Patient / S.O Not Indicated Pertinent Medications maalox, colace, MOM, Theragran Pertinent Labs (12/12) WNL, A1C 5.8 Nutritional Hx/Data Height 1.65 m Height (Calculated Centimeters) 165.1 Current Weight (lbs) 79.379 kg Weight (Calculated Kilograms) 79.4 Weight (Calculated Grams) 63652.7 [place] Body Weight 136 % [place] Body Weight 128 Body Mass Index (BMI) 29.1 Recent Weight Change No Weight Status Overweight GI Symptoms GI Symptoms None Last BM 12/16 x 1 Difficult in: None Cultural/Ethnic/Lutheran Belief none indicated Usual diet at home unknown Skin Integrity/Comment: Juan 21, intact Current %PO Good (75-100%) Estimated Nutritional Goals BEE in Kcals: Adj wt of IBW Calories/Kcals/Kg 66kg ADj bw 25-30kcal/kg Kcals Calculated ~1587-9074 kcal/day Protein: Adj wt of IBW Protein g/k-1.2 gm/kg Protein Calculated ~65-80 gm/day Fluid: ml ~5819-4979 ml/day (1 ml/kcal) Nutritional Problem No current Nutrition Prob Problem No nutrition diagnosis at this time Intervention/Recommendation Comments 1. Continue regular diet as tolerated by patient. Expected Outcomes/Goals Expected Outcomes/Goals oral intake >75% of meals, weight stable or trend toward IBW, nutrition related labs WNL F/U LR
--- NOTE | 2018-12-29 04:38 | Progress Notes ---
DATE: 12/28/2018 PSYCHIATRIC PROGRESS NOTE SUBJECTIVE: Staff was spoken to. The patient is interviewed. Mood is noted to be irritable. Affect is constricted. Insight and judgment at this time are noted to be still impaired. Impulse control is noted to be limited. Coping skills are noted to be limited. The patient has been currently on 400 mg of the Seroquel at bedtime and is also receiving 10 mg twice a day of the Zyprexa and still having the problems with the impulsivity. No side effects to the medications are noted at this time. Insight and judgment are noted to be still impaired. The patient's fluphenazine has been continued. The patient's olanzapine has been discontinued even with the 10 mg twice a day, has not been of any help and hence it is decided to continue the fluphenazine and go with the fluphenazine decanoate for this patient. [facility]# [id number]
[2018-12-29] MEDS: Multivitamin Tab PO SCH (08:04)
[2018-12-29] MEDS: Fish Oil 1,000 MG SGL PO SCH (08:04)
--- NOTE | 2018-12-29 12:34 | Internal Medicine Prog Note ---
Internal Medicine Subjective - Subjective Patient seen and examined:: with staff, chart reviewed Patient is:: awake, verbal, interactive Per staff patient has:: no adverse event, no episodes of fall, agitated Internal Medicine Objective - Physical Exam Vitals and I&O: Vital Signs Temp 98.0 F 12/29/18 10:38 Pulse 69 12/29/18 10:38 Resp 18 12/29/18 10:38 BP 127/78 12/29/18 10:38 Pulse Ox 97 12/29/18 10:38 Intake & Output 12/28/18 12/29/18 12/29/18 18:59 06:59 18:59 Intake Total 1320 240 Balance 1320 240 Intake: Oral 1080 240 Other 240 Other: # Voids 3 3 # Bowel Movements 1 0 Active Medications: Current Medications Acetaminophen (Tylenol) 650 mg PO Q4HR PRN PRN Reason: Mild Pain (Scale 1-3) Stop: 02/10/19 20:04 Last Admin: 12/13/18 04:09 Dose: 650 mg Acetaminophen (Tylenol) 650 mg PO Q4H PRN PRN Reason: TEMP ABOVE 100 Stop: 02/12/19 11:45 Al Hydrox/Mg Hydrox/Simethicone (Maalox) 30 ml PO Q4HR PRN PRN Reason: GI DISTRESS Stop: 02/10/19 20:04 Last Admin: 12/13/18 04:10 Dose: 30 ml Divalproex Sodium (Depakote Dr) 500 mg PO BID [facility]; Protocol Stop: 02/18/19 08:59 Last Admin: 12/29/18 08:06 Dose: Not Given Fish Oil ([place] 3) 1,000 mg PO DAILY [facility] Stop: 02/25/19 08:59 Last Admin: 12/29/18 08:04 Dose: 1,000 mg Fluphenazine Decanoate (Prolixin Deconate) 25 mg IM [id number] [facility]; Protocol Stop: 02/26/19 17:44 Fluphenazine HCl (Prolixin) 5 mg PO BID [facility]; Protocol Stop: 02/13/19 16:59 Last Admin: 12/29/18 08:04 Dose: 5 mg Ibuprofen (Motrin) 800 mg PO BID PRN PRN Reason: back pain Stop: 02/10/19 21:55 Last Admin: 12/29/18 09:49 Dose: 800 mg Lorazepam (Ativan) 0.5 mg PO Q4HR PRN; Protocol PRN Reason: Agitation Stop: 01/11/19 20:04 Last Admin: 12/28/18 17:40 Dose: 0.5 mg Magnesium Hydroxide (Milk Of Magnesia) 30 ml PO HS PRN PRN Reason: Constipation Memantine (Namenda) 10 mg PO BID [facility] Stop: 02/15/19 16:59 Last Admin: 12/29/18 08:04 Dose: 10 mg Multivitamins/Vitamin C (Theragran) 1 tab PO DAILY [facility] Stop: 02/11/19 08:59 Last Admin: 12/29/18 08:04 Dose: 1 tab Quetiapine Fumarate (Seroquel) 400 mg PO HS [facility]; Protocol Stop: 02/11/19 20:59 Last Admin: 12/28/18 21:07 Dose: 400 mg Zolpidem Tartrate (Ambien) 5 mg PO HS PRN PRN Reason: Insomnia Stop: 02/10/19 20:04 Last Admin: 12/28/18 21:07 Dose: 5 mg General: demented HEENT: NC/AT, PERRLA, EOMI Neck: Supple, No JVD Lungs: CTAB Cardiovascular: RRR, Normal S1, Normal S2 Abdomen: soft, non-tender, thin, positive bowel sound Extremities: excoriation Neurological: no change Internal Medicine Assmt/Plan - Assessment Assessment: ASSESSMENT AND PLAN: Low back pain, Alzheimer's dementia, psych disorder, constipation. - Plan Plan: PLAN: We will refer the patient nonsteroidal anti-inflammatory drugs. We will refer the patient's medication treatment. We will continue on laxative. We will continue to monitor the patient closely with Dr. Machuca. labs noted Nutritional Asmnt/Malnutr-PDOC - Dietary Evaluation Malnutrition Findings (Please click <Entered> for more info): Nutritional Asmnt/Malnutrition Start: 12/17/18 11: 18 Text: Status: Complete Freq: Protocol: Document 12/17/18 11:21 MARYANN (Rec: 12/17/18 11:46 MARYANN RODRIGEZ- FNS1) Nutritional Asmnt/Malnutrition Patient General Information Nutritional Screening Low Risk Diagnosis Psychosis Pertinent Medical Hx/Surgical Hx chronic low back pain, psych disorder, Alzheimer's dementia , constipation. Subjective Information Patient was admitted from [facility] due to aggressive behavior, agitation and wandering around the facility. Per nursing notes, patient easily agitated and irritable. Patient was seen wanding the halls at time of visit. Per nursing, tolerating diet without difficulty. Current Diet Order/ Nutrition Support Regular Patient / S.O Not Indicated Pertinent Medications maalox, colace, MOM, Theragran Pertinent Labs (12/12) WNL, A1C 5.8 Nutritional Hx/Data Height 1.65 m Height (Calculated Centimeters) 165.1 Current Weight (lbs) 79.379 kg Weight (Calculated Kilograms) 79.4 Weight (Calculated Grams) 76364.7 [place] Body Weight 136 % [place] Body Weight 128 Body Mass Index (BMI) 29.1 Recent Weight Change No Weight Status Overweight GI Symptoms GI Symptoms None Last BM 12/16 x 1 Difficult in: None Cultural/Ethnic/Denominational Belief none indicated Usual diet at home unknown Skin Integrity/Comment: Juan 21, intact Current %PO Good (75-100%) Estimated Nutritional Goals BEE in Kcals: Adj wt of IBW Calories/Kcals/Kg 66kg ADj bw 25-30kcal/kg Kcals Calculated ~4708-0985 kcal/day Protein: Adj wt of IBW Protein g/k-1.2 gm/kg Protein Calculated ~65-80 gm/day Fluid: ml ~7816-0018 ml/day (1 ml/kcal) Nutritional Problem No current Nutrition Prob Problem No nutrition diagnosis at this time Intervention/Recommendation Comments 1. Continue regular diet as tolerated by patient. Expected Outcomes/Goals Expected Outcomes/Goals oral intake >75% of meals, weight stable or trend toward IBW, nutrition related labs WNL F/U LR
--- NOTE | 2018-12-29 21:08 | Discharge Summary ---
DATE OF DISCHARGE: 12/29/2018 PSYCHIATRIC DISCHARGE SUMMARY IDENTIFYING DATA: The patient is a 58-year-old male, resident of [facility]. Information obtained by directly interviewing the patient as well as reviewing the admission papers and they are reliable. JUSTIFICATION OF HOSPITALIZATION: The patient is admitted on voluntary basis in view of his acute agitation. CHIEF COMPLAINT: "I don't know why they have to bring me in here." DIAGNOSES AT THE TIME OF THE ADMISSION: AXIS I: Schizophrenia, chronic paranoid type; rule out schizoaffective disorder. AXIS II: None. AXIS III: As per Dr. Lubin. HISTORY OF PRESENT ILLNESS: Please refer to 12/12/2018 dictation done by me. HOSPITAL COURSE AND RESPONSE TO TREATMENT: The patient has been observed on inpatient unit, provided with supportive psychotherapy. The patient has been closely monitored. Encouraged to participate in the groups. Initially, the patient was continued on the Seroquel and that is not working well. The patient has been placed on the Seroquel that has been continued up to 400 mg, that was also not helpful and the patient has to be placed on the Depakote for the mood swings and also placed on the fluphenazine given at 5 mg twice a day and finally the patient was given 25 mg of Prolixin Decanoate. With these medications, the patient has been observed and the patient's mood swings came under control and the patient was finally discharged on 12/29/2018 with recommendation that he is going to be seeking treatment on an outpatient basis. MENTAL STATUS EXAMINATION: At the time of discharge, the patient noted to be less irritable. Affect is appropriate. The patient's aggressive behavior has been coming down, but the patient continues to be paranoid and has dementia. The patient, however, is not presenting as a threat to self or others at the time of discharge. CONDITION AT THE TIME OF DISCHARGE: Noted to be stable. DIAGNOSES AT THE TIME OF DISCHARGE: AXIS I: Schizoaffective disorder. AXIS IB: Dementia and behavioral changes secondary to it. AXIS II: None. AXIS III: As per Dr. Lubin. AFTERCARE PLAN: [facility]. JOB# [id number]
== END 2018-12-29 13:15 | DRG 885 ==
LOC: GERO 18:40
PROVIDERS: ADMIT Psychiatry & Neurology Psychiatry; ATTEND Psychiatry & Neurology Psychiatry
DX: F20.0 Paranoid schizophrenia (principal); F02.81 Dementia in other diseases classified elsewhere, unspecified severity, with behavioral disturbance; G30.9 Alzheimer's disease, unspecified; K59.00 Constipation, unspecified; F29 Unspecified psychosis not due to a substance or known physiological condition; G89.29 Other chronic pain; M54.5 Low back pain; F17.210 Nicotine dependence, cigarettes, uncomplicated
CPT/HCPCS: 83036-90; 90899; A4216; G0410; J1200; J7051; Z7610